=== PATIENT | male | born 1945 | race African-American/Black ===

== ENCOUNTER 2016-04-30 13:22 | Emergency (ER) | payer MEDICARE, OTHER ==
[~2016-04-30] VITALS: Ht 177.8 cm; Wt 113.4 kg
[~2016-04-30 13:22] MED LIST: CLON0.5T; NIFE30TA70; TRAZ50TA2; [UNRECOGNIZED DRUG - CODE]
[2016-04-30] MEDS ORDERED: KETOROLAC TROMETH 60MG/2ML VIAL IM ONE (16:15)
[2016-04-30 17:00] VITALS: BP 132/76
== END 2016-04-30 17:21 | disposition home or self-care (01) ==
LOC: ER 13:22
DX: M79.642 Pain in left hand (principal); I10 Essential (primary) hypertension; R51 Headache; F20.9 Schizophrenia, unspecified; W01.0XXA Fall on same level from slipping, tripping and stumbling without subsequent striking against object, initial encounter; Y93.89 Activity, other specified; Y99.8 Other external cause status; Y92.89 Other specified places as the place of occurrence of the external cause
CPT/HCPCS: 70450; 73130; 93971; 96372; 99284; J1885

== ENCOUNTER 2016-09-12 07:36 | Emergency (ER) | payer MEDICARE ==
[~2016-09-12] VITALS: Ht 177.8 cm; Wt 108.9 kg
[~2016-09-12 07:36] MED LIST changes: +AMLO5TAB2 PO
[2016-09-12 07:42] VITALS: BP 142/85
[2016-09-14] MEDS ORDERED: ATOR20TA50 PO (13:55)
[2016-09-14] MEDS ORDERED: ASPI81CH43 PO (13:55)
== END 2016-09-12 08:00 | disposition left against medical advice (07) ==
LOC: ER 07:36
DX: I10 Essential (primary) hypertension (principal); Z53.21 Procedure and treatment not carried out due to patient leaving prior to being seen by health care provider

== ENCOUNTER 2017-03-21 07:21 | Inpatient (IN) | payer OTHER, MEDICARE ==
[~2017-03-21] VITALS: Ht 182.9 cm; Wt 81.6 kg
[~2017-03-21 07:21] MED LIST changes: +ASPI81CH43 PO; +ATOR20TA50 PO
[2017-03-21 11:16] LABS: Basophils # (auto) 0 uL; Basophils % (auto) 0.6 % (0.0-2.0); Eosinophils # (auto) 0.2 uL; Eosinophils % (auto) 2.4 % (0.0-7.0); Hematocrit 46.1 % (41.0-53.0); Hemoglobin 14.3 g/dL (13.5-17.5); Lymphocytes # (auto) 1.7 uL; Lymphocytes % (auto) 24.8 % (10.0-50.0); Mean Corpuscular Hemoglobin 26.8 pg (28.0-32.0); Mean Corpuscular Volume 86.4 fL (80.0-100.0); Monocytes # (auto) 0.5 uL; Monocytes % (auto) 6.5 % (0.0-12.0); Neutrophils # (auto) 4.6 uL; Neutrophils % (auto) 65.7 % (37.0-80.0); Nucleated Red Blood Cells % 0.3 %; Platelet Count (auto) 193 10^3/uL (140-450); Red Blood Cells 5.34 10^6/uL (4.5-5.90); White Blood Cell 7.1 10^3/uL (4.4-10.8)
[2017-03-21 11:58] LABS: Alanine Aminotransferase 40 U/L (16-61); Albumin 3.3 g/dL (3.4-5.0); Alkaline Phosphatase 70 U/L (45-117); Anion Gap 9 (5-15); Aspartate Aminotransferase 20 U/L (15-37); BUN/Creatinine Ratio 15.2; Bilirubin, Total 0.6 mg/dL (0.2-1.0); Blood Urea Nitrogen 16 mg/dL (7-18); Calcium 10.2 mg/dL (8.5-10.1); Carbon Dioxide 20 mmol/L (21-32); Chloride 108 mmol/L (98-107); GFR African American 90 mL/min; GFR Non-African American 74 mL/min; Glucose 87 mg/dL (74-106); Sodium 137 mmol/L (136-145); Total Protein 7.7 g/dL (6.4-8.2)
[2017-03-21] MEDS: SODIUM CHLORIDE 0.9% 1,000 ML IV SCH (12:47)
[2017-03-21] MEDS ORDERED: amLODIPine BESYLATE 5 MG TAB PO ONE (13:00)
[2017-03-21] MEDS ORDERED: ACETAMINOPHEN 500 MG TAB PO PRN (13:00)
[2017-03-21] MEDS ORDERED: PROMETHAZINE HCL 25 MG/ML 1ML IV PRN (13:00)
[2017-03-21] MEDS ORDERED: ASPirin 81 mg TAB PO ONE (13:00)
[2017-03-21] MEDS ORDERED: LORazepam 0.5 MG TAB PO PRN (13:00)
[2017-03-21] MEDS ORDERED: MORPHINE SULF INJ 2 MG/ML SYRINGE 1ML IV PRN (13:00)
[2017-03-21] MEDS ORDERED: TEMAZEPAM 15 MG CAP PO PRN (13:00)
[2017-03-21] MEDS: HYDROcodone-ACET 5/325MG TAB PO PRN (14:41)
[2017-03-21 22:00] VITALS: BP 185/95
[2017-03-21 22:06] VITALS: BP 185/83
[2017-03-21 22:08] VITALS: BP 202/91
[2017-03-22] MEDS: ATORVASTATIN 20 MG TAB PO SCH ×2 (00:08→21:37)
[2017-03-22] MEDS: HYDROcodone-ACET 5/325MG TAB PO PRN (00:08)
[2017-03-22] MEDS ORDERED: cloNIDine HCL 0.1 MG TAB PO ONE (00:15)
[2017-03-22] MEDS ORDERED: METOPROLOL TARTRATE 25 MG TAB PO ONE (02:15)
[2017-03-22 05:19] VITALS: BP 140/95
[2017-03-22] MEDS: SODIUM CHLORIDE 0.9% 1,000 ML IV SCH ×2 (07:50→17:23)
[2017-03-22 09:00] VITALS: BP 137/91
[2017-03-22] MEDS: amLODIPine BESYLATE 5 MG TAB PO SCH (09:32)
[2017-03-22] MEDS: METOPROLOL TARTRATE 25 MG TAB PO SCH ×2 (09:33→21:37)
[2017-03-22] MEDS: ASPirin 81 mg TAB PO SCH (09:33)
[2017-03-22 13:00] VITALS: BP 135/90
[2017-03-22 17:00] VITALS: BP 134/79
[2017-03-22] MEDS ORDERED: DOCUSATE SOD 100 MG CAP PO PRN (17:30)
[2017-03-22] MEDS ORDERED: LACTULOSE 20Gm/30ML SOLN PO SCH (17:30)
[2017-03-22] MEDS ORDERED: LACTULOSE 20Gm/30ML SOLN PO PRN (18:00)
[2017-03-22 20:58] VITALS: BP 148/104
[2017-03-23] MEDS ORDERED: cloNIDine HCL 0.1 MG TAB PO PRN (00:45)
[2017-03-23] MEDS: SODIUM CHLORIDE 0.9% 1,000 ML IV SCH (07:41)
[2017-03-23 09:00] VITALS: BP 149/116
[2017-03-23] MEDS: ASPirin 81 mg TAB PO SCH (09:24)
[2017-03-23] MEDS: amLODIPine BESYLATE 5 MG TAB PO SCH (09:35)
[2017-03-23 09:36] VITALS: BP 178/100
[2017-03-23] MEDS: METOPROLOL TARTRATE 25 MG TAB PO SCH (09:37)
[2017-03-23 10:30] VITALS: BP 186/83
[2017-03-23 10:53] VITALS: BP 180/83
[2017-03-23 13:00] VITALS: BP 161/95
== END 2017-03-23 14:30 | disposition home or self-care (01) | DRG 605 ==
LOC: EDBD 07:21 → ER 07:21 → OVERFLOW 07:22 → TELE-WESTW 20:45
PROVIDERS: ADMIT Internal Medicine; ATTEND Family Medicine
DX: S70.01XA Contusion of right hip, initial encounter (principal); F20.9 Schizophrenia, unspecified; I69.354 Hemiplegia and hemiparesis following cerebral infarction affecting left non-dominant side; W18.39XA Other fall on same level, initial encounter; E78.5 Hyperlipidemia, unspecified; F43.10 Post-traumatic stress disorder, unspecified; I10 Essential (primary) hypertension; M10.9 Gout, unspecified; M19.90 Unspecified osteoarthritis, unspecified site; E21.3 Hyperparathyroidism, unspecified; F32.9 Major depressive disorder, single episode, unspecified; G47.00 Insomnia, unspecified; F41.9 Anxiety disorder, unspecified; Z74.01 Bed confinement status; Z79.899 Other long term (current) drug therapy; Y93.89 Activity, other specified; Z82.49 Family history of ischemic heart disease and other diseases of the circulatory system; Y92.098 Other place in other non-institutional residence as the place of occurrence of the external cause; I25.2 Old myocardial infarction; Y99.8 Other external cause status
CPT/HCPCS: 36415; 70450; 72192; 73502; 80053; 84484; 85025; 93005

== ENCOUNTER 2017-04-13 18:00 | Inpatient (IN) | payer MEDICARE, OTHER ==
[~2017-04-13] VITALS: Ht 177.8 cm; Wt 81.4 kg
[2017-04-13] MEDS ORDERED: SODIUM CHLORIDE 0.9% 1,000 ML IVB ONE (18:16)
[2017-04-13 20:00] LABS: Basophils # (auto) 0.1 uL; Basophils % (auto) 1.3 % (0.0-2.0); Eosinophils # (auto) 0.1 uL; Eosinophils % (auto) 1.3 % (0.0-7.0); Hematocrit 40.6 % (41.0-53.0); Hemoglobin 13.4 g/dL (13.5-17.5); Lymphocytes % (auto) 19.2 % (10.0-50.0); Mean Corpuscular Hemoglobin 27.7 pg (28.0-32.0); Mean Corpuscular Volume 84.1 fL (80.0-100.0); Monocytes # (auto) 0.7 uL; Monocytes % (auto) 7.1 % (0.0-12.0); Neutrophils # (auto) 7.3 uL; Neutrophils % (auto) 71.1 % (37.0-80.0); Nucleated Red Blood Cells % 0.6 %; Platelet Count (auto) 251 10^3/uL (140-450); Red Blood Cells 4.82 10^6/uL (4.5-5.90); Red Cell Distribution Width 18.3 % (11.8-14.3); White Blood Cell 10.2 10^3/uL (4.4-10.8)
[2017-04-13 20:13] LABS: Alanine Aminotransferase 30 U/L (16-61); Albumin 3.7 g/dL (3.4-5.0); Alkaline Phosphatase 71 U/L (45-117); Anion Gap 10 (5-15); Aspartate Aminotransferase 15 U/L (15-37); BUN/Creatinine Ratio 11.6; Bilirubin, Total 0.4 mg/dL (0.2-1.0); Blood Urea Nitrogen 22 mg/dL (7-18); Calcium 9.9 mg/dL (8.5-10.1); Carbon Dioxide 24 mmol/L (21-32); Chloride 104 mmol/L (98-107); GFR African American 45 mL/min; GFR Non-African American 37 mL/min; Glucose 104 mg/dL (74-106); Lactic Acid w/Reflex 2.8 mmol/L (0.4-2.0); Magnesium 2.1 mg/dL (1.6-2.6); Sodium 138 mmol/L (136-145); Total Protein 7.9 g/dL (6.4-8.2)
[2017-04-13 21:27] LABS: Urine Bacteria FEW /hpf (None Seen); Urine Blood 2+ /uL (Negative); Urine Hyaline Cast MOD /lpf (0 - 2); Urine Mucus FEW (None Seen); Urine Specific Gravity 1.021 (1.001-1.035); Urine WBC 9 /hpf (0 - 3)
[2017-04-13 21:39] LABS: Alcohol, Urine < 3.0 mg/dL (0-5); Amphetamine Screen, Urine NEGATIVE (NEGATIVE); Barbiturate Scree,Urine NEGATIVE (NEGATIVE); Benzodiazephine Screen, Urine NEGATIVE (NEGATIVE); Cannabinoid Screen, Urine NEGATIVE (NEGATIVE); Cocaine Screen, Urine NEGATIVE (NEGATIVE); Opiate Scree,Urine NEGATIVE (NEGATIVE); Phencyclidine Screen, Urine NEGATIVE (NEGATIVE)
[2017-04-14] MEDS: SODIUM CHLORIDE 0.9% 1,000 ML IV SCH ×3 (00:58→19:45)
[2017-04-14] MEDS ORDERED: TEMAZEPAM 15 MG CAP PO PRN (01:00)
[2017-04-14] MEDS ORDERED: MORPHINE SULFATE 4 MG/ML SYR/VIAL IV PRN (01:00)
[2017-04-14] MEDS ORDERED: HYDROcodone-ACET 5/325MG TAB PO PRN (01:00)
[2017-04-14] MEDS ORDERED: traZODone HCL 50 MG TAB PO ONE (01:00)
[2017-04-14] MEDS ORDERED: NITROGLYCERIN 0.4 MG SL TAB SL PRN (01:00)
[2017-04-14] MEDS ORDERED: ACETAMINOPHEN 325 MG TAB PO PRN (01:00)
[2017-04-14] MEDS ORDERED: ONDANSETRON HCL 4 MG/2 ML VIAL IV PRN (01:00)
[2017-04-14] MEDS ORDERED: cefTRIAXone 1GM/10ml IVPUSH 10 ML IV ONE (01:00)
[2017-04-14 08:00] VITALS: BP 120/77
[2017-04-14 08:08] VITALS: BP 125/77
[2017-04-14] MEDS: cefTRIAXone 1GM/10ml IVPUSH 10 ML IV SCH (08:37)
[2017-04-14] MEDS: FAMOTIDINE 20 MG TAB PO SCH (10:16)
[2017-04-14] MEDS: NIFEdipine ER 30 MG TAB PO SCH (10:16)
[2017-04-14] MEDS: ENOXAPARIN SOD 40 MG/0.4 ML SYRINGE SC SCH (10:17)
[2017-04-14] MEDS: amLODIPine BESYLATE 5 MG TAB PO SCH (10:17)
[2017-04-14] MEDS: clonazePAM 0.5 MG TAB PO SCH (10:18)
[2017-04-14 12:44] VITALS: BP 121/76
[2017-04-14 16:39] VITALS: BP 145/83
[2017-04-14] MEDS ORDERED: ATORVASTATIN 20 MG TAB PO SCH (22:00)
[2017-04-14] MEDS: traZODone HCL 50 MG TAB PO SCH (22:10)
[2017-04-14 22:28] VITALS: BP 153/95
[2017-04-15 05:08] VITALS: BP 136/88
[2017-04-15 06:08] LABS: Basophils # (auto) 0.1 uL; Eosinophils # (auto) 0.2 uL; Eosinophils % (auto) 3.6 % (0.0-7.0); Hematocrit 34.7 % (41.0-53.0); Hemoglobin 11.5 g/dL (13.5-17.5); Lymphocytes # (auto) 2.7 uL; Lymphocytes % (auto) 44.6 % (10.0-50.0); Mean Corpuscular Hemoglobin 27.9 pg (28.0-32.0); Mean Corpuscular Hgb Conc. 33.1 g/dL (32.0-36.0); Mean Corpuscular Volume 84.3 fL (80.0-100.0); Monocytes # (auto) 0.4 uL; Monocytes % (auto) 6.2 % (0.0-12.0); Neutrophils # (auto) 2.7 uL; Neutrophils % (auto) 44.6 % (37.0-80.0); Nucleated Red Blood Cells % 0.1 %; Platelet Count (auto) 228 10^3/uL (140-450); Red Blood Cells 4.12 10^6/uL (4.5-5.90)
[2017-04-15 06:35] LABS: Albumin 3.2 g/dL (3.4-5.0); BUN/Creatinine Ratio 17.8; Bilirubin, Total 0.7 mg/dL (0.2-1.0); Calcium 9.8 mg/dL (8.5-10.1); Total Protein 6.8 g/dL (6.4-8.2)
[2017-04-15 08:40] VITALS: BP 154/68
[2017-04-15] MEDS: cefTRIAXone 1GM/10ml IVPUSH 10 ML IV SCH (09:33)
[2017-04-15] MEDS: FAMOTIDINE 20 MG TAB PO SCH (10:00)
[2017-04-15] MEDS: ENOXAPARIN SOD 40 MG/0.4 ML SYRINGE SC SCH (11:12)
[2017-04-15] MEDS: clonazePAM 0.5 MG TAB PO SCH (11:13)
[2017-04-15] MEDS: NIFEdipine ER 30 MG TAB PO SCH (11:13)
[2017-04-15] MEDS: amLODIPine BESYLATE 5 MG TAB PO SCH (11:13)
[2017-04-15] MEDS: SODIUM CHLORIDE 0.9% 1,000 ML IV SCH ×2 (12:38→16:21)
[2017-04-15] MEDS ORDERED: ASPirin-EC 81 mg tab PO ONE (12:45)
[2017-04-15 13:00] VITALS: BP 130/74
[2017-04-15 17:00] VITALS: BP 156/95
[2017-04-15] MEDS: traZODone HCL 50 MG TAB PO SCH (21:53)
[2017-04-15 22:00] VITALS: BP 149/77
[2017-04-15] MEDS ORDERED: ATORVASTATIN 20 MG TAB PO SCH (22:00)
[2017-04-16 04:35] VITALS: BP 137/77
[2017-04-16] MEDS: SODIUM CHLORIDE 0.9% 1,000 ML IV SCH (05:48)
[2017-04-16 05:56] LABS: Basophils # (auto) 0 uL; Basophils % (auto) 0.7 % (0.0-2.0); Eosinophils # (auto) 0.2 uL; Eosinophils % (auto) 3.6 % (0.0-7.0); Hematocrit 35.8 % (41.0-53.0); Hemoglobin 11.9 g/dL (13.5-17.5); Lymphocytes # (auto) 2.4 uL; Lymphocytes % (auto) 43.5 % (10.0-50.0); Mean Corpuscular Hemoglobin 28.1 pg (28.0-32.0); Mean Corpuscular Hgb Conc. 33.2 g/dL (32.0-36.0); Mean Corpuscular Volume 84.8 fL (80.0-100.0); Monocytes # (auto) 0.4 uL; Monocytes % (auto) 7.7 % (0.0-12.0); Neutrophils # (auto) 2.5 uL; Neutrophils % (auto) 44.5 % (37.0-80.0); Nucleated Red Blood Cells % 0.1 %; Platelet Count (auto) 232 10^3/uL (140-450); Red Blood Cells 4.22 10^6/uL (4.5-5.90); Red Cell Distribution Width 17.9 % (11.8-14.3); White Blood Cell 5.5 10^3/uL (4.4-10.8)
[2017-04-16 06:13] LABS: BUN/Creatinine Ratio 18.3; Calcium 10.2 mg/dL (8.5-10.1); Potassium 3.9 mmol/L (3.5-5.1)
[2017-04-16] MEDS ORDERED: ASPirin-EC 81 mg tab PO SCH (10:00)
[2017-04-16] MEDS: cefTRIAXone 1GM/10ml IVPUSH 10 ML IV SCH (10:50)
[2017-04-16] MEDS: clonazePAM 0.5 MG TAB PO SCH (10:50)
[2017-04-16] MEDS: FAMOTIDINE 20 MG TAB PO SCH (10:51)
[2017-04-16] MEDS: amLODIPine BESYLATE 5 MG TAB PO SCH (10:51)
[2017-04-16] MEDS: ENOXAPARIN SOD 40 MG/0.4 ML SYRINGE SC SCH (10:52)
[2017-04-16] MEDS: NIFEdipine ER 30 MG TAB PO SCH (10:54)
[2017-04-16 13:00] VITALS: BP_SYST 153; BP_SYST 158; BP_DIAS 90; BP_DIAS 94
[2017-04-16 15:50] VITALS: BP 151/78
[2017-04-17] MEDS ORDERED: HALO2TAB (17:54)
== END 2017-04-16 20:45 | disposition home or self-care (01) | DRG 314 ==
LOC: EDBD 18:00 → ER 18:00 → TELE 18:01 → TELE-CENTR 04-14 02:45 → TELE-WESTW 04-15 20:30
PROVIDERS: ADMIT Nurse Practitioner; ATTEND Internal Medicine
DX: I95.9 Hypotension, unspecified (principal); N17.0 Acute kidney failure with tubular necrosis; G93.49 Other encephalopathy; I69.354 Hemiplegia and hemiparesis following cerebral infarction affecting left non-dominant side; E44.1 Mild protein-calorie malnutrition; N39.0 Urinary tract infection, site not specified; F01.50 Vascular dementia, unspecified severity, without behavioral disturbance, psychotic disturbance, mood disturbance, and anxiety; F20.9 Schizophrenia, unspecified; I13.10 Hypertensive heart and chronic kidney disease without heart failure, with stage 1 through stage 4 chronic kidney disease, or unspecified chronic kidney disease; E78.5 Hyperlipidemia, unspecified; F32.9 Major depressive disorder, single episode, unspecified; F43.10 Post-traumatic stress disorder, unspecified; I25.10 Atherosclerotic heart disease of native coronary artery without angina pectoris; G47.00 Insomnia, unspecified; F12.10 Cannabis abuse, uncomplicated; I67.9 Cerebrovascular disease, unspecified; I70.0 Atherosclerosis of aorta; N18.3 Chronic kidney disease, stage 3 (moderate); Z68.25 Body mass index [BMI] 25.0-25.9, adult; Z79.899 Other long term (current) drug therapy; Z80.0 Family history of malignant neoplasm of digestive organs; Z82.49 Family history of ischemic heart disease and other diseases of the circulatory system; Z85.038 Personal history of other malignant neoplasm of large intestine; Z79.82 Long term (current) use of aspirin; I25.2 Old myocardial infarction; Z98.61 Coronary angioplasty status; Z87.81 Personal history of (healed) traumatic fracture
CPT/HCPCS: 36415; 70450; 71045; 80048; 80053; 80307; 81001; 82962; 83605; 83735; 84484; 85025; 87040; 87081; 87086; 87088; 87186; 93005; 94761; 95819; 97116; 97163; 97530

== ENCOUNTER 2017-04-17 13:27 | Inpatient (IN) | payer MEDICARE, OTHER ==
[~2017-04-17] VITALS: Ht 180.3 cm; Wt 82.7 kg
[2017-04-17 14:31] LABS: Basophils # (auto) 0.1 uL; Basophils % (auto) 1.2 % (0.0-2.0); Eosinophils # (auto) 0.2 uL; Eosinophils % (auto) 1.7 % (0.0-7.0); Hematocrit 40.4 % (41.0-53.0); Hemoglobin 13.4 g/dL (13.5-17.5); Lymphocytes % (auto) 22.6 % (10.0-50.0); Mean Corpuscular Hemoglobin 27.7 pg (28.0-32.0); Mean Corpuscular Hgb Conc. 33.2 g/dL (32.0-36.0); Mean Corpuscular Volume 83.4 fL (80.0-100.0); Monocytes # (auto) 0.8 uL; Monocytes % (auto) 9.1 % (0.0-12.0); Neutrophils # (auto) 5.9 uL; Neutrophils % (auto) 65.4 % (37.0-80.0); Platelet Count (auto) 238 10^3/uL (140-450); Red Blood Cells 4.84 10^6/uL (4.5-5.90); Red Cell Distribution Width 17.7 % (11.8-14.3)
[2017-04-17 15:06] LABS: Alanine Aminotransferase 29 U/L (16-61); Albumin 3.5 g/dL (3.4-5.0); Alkaline Phosphatase 74 U/L (45-117); Anion Gap 10 (5-15); Aspartate Aminotransferase 13 U/L (15-37); BUN/Creatinine Ratio 10.4; Bilirubin, Total 0.4 mg/dL (0.2-1.0); Blood Urea Nitrogen 14 mg/dL (7-18); Calcium 10.2 mg/dL (8.5-10.1); Carbon Dioxide 23 mmol/L (21-32); Chloride 106 mmol/L (98-107); GFR African American 68 mL/min; GFR Non-African American 56 mL/min; Glucose 125 mg/dL (74-106); Magnesium 1.9 mg/dL (1.6-2.6); Potassium 3.8 mmol/L (3.5-5.1); Sodium 139 mmol/L (136-145); Total Protein 7.8 g/dL (6.4-8.2)
[2017-04-17] MEDS ORDERED: SODIUM CHLORIDE 0.9% 1,000 ML IV ONE (17:19)
[2017-04-17] MEDS ORDERED: cefTRIAXone 1GM/10ml IVPUSH 10 ML IV ONE (17:30)
[2017-04-17] MEDS ORDERED: HALO2TAB (17:54)
[2017-04-17 18:19] LABS: Lactic Acid w/Reflex 4.3 mmol/L (0.4-2.0)
[2017-04-17] MEDS ORDERED: NITROGLYCERIN 0.4 MG SL TAB SL PRN (19:15)
[2017-04-17] MEDS ORDERED: MORPHINE SULFATE 4 MG/ML SYR/VIAL IV PRN (19:15)
[2017-04-17] MEDS ORDERED: HALOPERIDOL 1 MG TAB PO PRN (19:15)
[2017-04-17] MEDS ORDERED: LACTULOSE 20Gm/30ML SOLN PO PRN (19:15)
[2017-04-17] MEDS ORDERED: LORazepam 2MG/ML-1ML VIAL IV PRN (19:15)
[2017-04-17] MEDS ORDERED: PROMETHAZINE HCL 25 MG/ML 1ML IV PRN (19:15)
[2017-04-17] MEDS ORDERED: LORazepam 0.5 MG TAB PO PRN (19:15)
[2017-04-17] MEDS ORDERED: ACETAMINOPHEN 500 MG TAB PO PRN (19:15)
[2017-04-17] MEDS: SODIUM CHLORIDE 0.9% 1,000 ML IV SCH (20:24)
[2017-04-17] MEDS ORDERED: cloNIDine HCL 0.1 MG TAB ONE (21:20)
[2017-04-17] MEDS ORDERED: cloNIDine HCL 0.1 MG TAB PO ONE (21:30)
[2017-04-17] MEDS ORDERED: clonazePAM 0.5 MG TAB PO SCH (22:00)
[2017-04-17] MEDS: [UNRECOGNIZED DRUG - OTHER] PO SCH (22:00)
[2017-04-17] MEDS ORDERED: ATORVASTATIN 20 MG TAB PO SCH (22:00)
[2017-04-17] MEDS ORDERED: LEVETIRACETAM 500 MG TAB PO SCH (22:00)
[2017-04-17 22:34] VITALS: BP 115/69
[2017-04-17] MEDS: traZODone HCL 50 MG TAB PO SCH (23:42)
[2017-04-18 05:15] VITALS: BP 128/71
[2017-04-18] MEDS ORDERED: ATOR1TAB PO (06:00)
[2017-04-18] MEDS ORDERED: CHOL20007 OR (06:00)
[2017-04-18] MEDS ORDERED: HALO2TAB PO (06:00)
[2017-04-18] MEDS ORDERED: METO25TA5 PO (06:02)
[2017-04-18 09:00] VITALS: BP 142/84
[2017-04-18] MEDS: amLODIPine BESYLATE 5 MG TAB PO SCH (09:53)
[2017-04-18] MEDS: ASPirin 81 mg TAB PO SCH (09:55)
[2017-04-18] MEDS: ENOXAPARIN SOD 40 MG/0.4 ML SYRINGE SC SCH (09:56)
[2017-04-18] MEDS: SODIUM CHLORIDE 0.9% 1,000 ML IV SCH ×2 (11:02→21:25)
[2017-04-18 13:00] VITALS: BP 118/67
[2017-04-18 16:43] VITALS: BP 126/66
[2017-04-18] MEDS: [UNRECOGNIZED DRUG - OTHER] PO SCH (21:25)
[2017-04-18] MEDS: ATORVASTATIN 20 MG TAB PO SCH (21:26)
[2017-04-18] MEDS: traZODone HCL 50 MG TAB PO SCH (21:26)
[2017-04-18 22:00] VITALS: BP 164/102
[2017-04-19 05:25] VITALS: BP 149/98
[2017-04-19 08:00] VITALS: BP 154/75
[2017-04-19 09:37] VITALS: BP 173/92
[2017-04-19] MEDS: ASPirin 81 mg TAB PO SCH (10:07)
[2017-04-19] MEDS: ENOXAPARIN SOD 40 MG/0.4 ML SYRINGE SC SCH (10:07)
[2017-04-19] MEDS: amLODIPine BESYLATE 5 MG TAB PO SCH (10:07)
[2017-04-19] MEDS: SODIUM CHLORIDE 0.9% 1,000 ML IV SCH (11:04)
[2017-04-19 13:00] VITALS: BP 154/75
[2017-04-19 13:00] LABS: INR 0.94 (0.9-1.15); Prothrombin Time 10.2 sec (9.37-12.3)
[2017-04-19] MEDS: LINEZOLID 600MG/300ML 300 ML IV SCH (14:33)
[2017-04-19] MEDS: HYDROcodone-ACET 5/325MG TAB PO PRN (14:35)
[2017-04-19 16:33] VITALS: BP 130/63
[2017-04-19] MEDS ORDERED: LIDOCAINE 1% HCL (LOCAL ANESTH.) INJ 20ML MDV ID ONE (19:00)
[2017-04-19] MEDS: [UNRECOGNIZED DRUG - OTHER] PO SCH (22:00)
[2017-04-19] MEDS: SODIUM CHLOR 0.9% PF (SALINE LOCK) 10ML VIAL IV SCH (22:00)
[2017-04-19] MEDS: traZODone HCL 50 MG TAB PO SCH (22:05)
[2017-04-19] MEDS: ATORVASTATIN 20 MG TAB PO SCH (22:05)
[2017-04-19 22:08] VITALS: BP 146/79
[2017-04-20] MEDS: LINEZOLID 600MG/300ML 300 ML IV SCH ×3 (00:44→23:40)
[2017-04-20] MEDS: SODIUM CHLORIDE 0.9% 1,000 ML IV SCH ×2 (00:45→14:48)
[2017-04-20] MEDS: MORPHINE SULFATE 4 MG/ML SYR/VIAL IV PRN ×4 (04:45→05:36)
[2017-04-20 05:14] VITALS: BP 143/78
[2017-04-20 09:30] VITALS: BP 139/77
[2017-04-20] MEDS: ASPirin 81 mg TAB PO SCH (12:45)
[2017-04-20] MEDS: SODIUM CHLOR 0.9% PF (SALINE LOCK) 10ML VIAL IV SCH ×2 (12:45→21:54)
[2017-04-20] MEDS: amLODIPine BESYLATE 5 MG TAB PO SCH (12:46)
[2017-04-20] MEDS: ENOXAPARIN SOD 40 MG/0.4 ML SYRINGE SC SCH (12:46)
[2017-04-20 13:00] VITALS: BP 154/93
[2017-04-20 13:03] LABS: Urine Bacteria FEW /hpf (None Seen); Urine Blood 2+ /uL (Negative); Urine Specific Gravity 1.012 (1.001-1.035); Urine WBC 47 /hpf (0 - 3)
[2017-04-20 17:56] VITALS: BP 130/69
[2017-04-20] MEDS: [UNRECOGNIZED DRUG - OTHER] PO SCH ×2 (21:54→22:00)
[2017-04-20] MEDS: ATORVASTATIN 20 MG TAB PO SCH (21:54)
[2017-04-20] MEDS: traZODone HCL 50 MG TAB PO SCH (21:54)
[2017-04-20 22:00] VITALS: BP 162/92
[2017-04-21] VITALS (13 sets, daily range): BP systolic 128–179; BP diastolic 61–98
[2017-04-21] MEDS: hydrALAZINE HCL 20 MG/ML VL IV PRN ×2 (00:27→21:20)
[2017-04-21] MEDS: MORPHINE SULFATE 4 MG/ML SYR/VIAL IV PRN ×2 (01:18→20:37)
[2017-04-21] MEDS: SODIUM CHLORIDE 0.9% 1,000 ML IV SCH ×2 (05:30→17:16)
[2017-04-21] MEDS: SODIUM CHLOR 0.9% PF (SALINE LOCK) 10ML VIAL IV SCH ×2 (10:00→22:32)
[2017-04-21] MEDS: ASPirin 81 mg TAB PO SCH (11:49)
[2017-04-21] MEDS: amLODIPine BESYLATE 5 MG TAB PO SCH (11:49)
[2017-04-21] MEDS: ENOXAPARIN SOD 40 MG/0.4 ML SYRINGE SC SCH (11:49)
[2017-04-21] MEDS: LINEZOLID 600MG/300ML 300 ML IV SCH (11:50)
[2017-04-21] MEDS: [UNRECOGNIZED DRUG - OTHER] PO SCH (22:00)
[2017-04-21] MEDS: traZODone HCL 50 MG TAB PO SCH (22:32)
[2017-04-21] MEDS: ATORVASTATIN 20 MG TAB PO SCH (22:33)
[2017-04-22] MEDS: LINEZOLID 600MG/300ML 300 ML IV SCH ×2 (00:16→19:40)
[2017-04-22] MEDS: MORPHINE SULFATE 4 MG/ML SYR/VIAL IV PRN (04:30)
[2017-04-22 05:25] VITALS: BP 131/72
[2017-04-22] MEDS: SODIUM CHLORIDE 0.9% 1,000 ML IV SCH ×2 (05:44→22:16)
[2017-04-22 08:00] VITALS: BP 126/74
[2017-04-22 13:00] VITALS: BP 121/64
[2017-04-22] MEDS: amLODIPine BESYLATE 5 MG TAB PO SCH (19:41)
[2017-04-22] MEDS: SODIUM CHLOR 0.9% PF (SALINE LOCK) 10ML VIAL IV SCH ×2 (19:41→22:16)
[2017-04-22] MEDS: ASPirin 81 mg TAB PO SCH (19:41)
[2017-04-22] MEDS: ENOXAPARIN SOD 40 MG/0.4 ML SYRINGE SC SCH (19:42)
[2017-04-22 22:00] VITALS: BP 152/80
[2017-04-22] MEDS: [UNRECOGNIZED DRUG - OTHER] PO SCH (22:00)
[2017-04-22] MEDS: traZODone HCL 50 MG TAB PO SCH (22:16)
[2017-04-22] MEDS: ATORVASTATIN 20 MG TAB PO SCH (22:16)
[2017-04-23] MEDS: LINEZOLID 600MG/300ML 300 ML IV SCH ×3 (01:01→23:33)
[2017-04-23 05:00] VITALS: BP 143/79
[2017-04-23 09:00] VITALS: BP 147/93
[2017-04-23] MEDS: ASPirin 81 mg TAB PO SCH (09:07)
[2017-04-23] MEDS: SODIUM CHLOR 0.9% PF (SALINE LOCK) 10ML VIAL IV SCH ×2 (09:07→21:27)
[2017-04-23] MEDS: ENOXAPARIN SOD 40 MG/0.4 ML SYRINGE SC SCH (09:08)
[2017-04-23] MEDS: amLODIPine BESYLATE 5 MG TAB PO SCH (09:08)
[2017-04-23] MEDS: MORPHINE SULFATE 4 MG/ML SYR/VIAL IV PRN (09:09)
[2017-04-23 12:00] VITALS: BP 165/101
[2017-04-23 17:41] VITALS: BP 152/86
[2017-04-23] MEDS: SODIUM CHLORIDE 0.9% 1,000 ML IV SCH ×2 (19:33→21:27)
[2017-04-23] MEDS: [UNRECOGNIZED DRUG - OTHER] PO SCH (21:26)
[2017-04-23] MEDS: traZODone HCL 50 MG TAB PO SCH (21:26)
[2017-04-23] MEDS: ATORVASTATIN 20 MG TAB PO SCH (21:26)
[2017-04-23 22:00] VITALS: BP 149/99
[2017-04-24 04:54] VITALS: BP 132/78
[2017-04-24 09:00] VITALS: BP 126/93
[2017-04-24] MEDS: SODIUM CHLOR 0.9% PF (SALINE LOCK) 10ML VIAL IV SCH ×2 (09:43→21:31)
[2017-04-24] MEDS: ASPirin 81 mg TAB PO SCH (09:43)
[2017-04-24] MEDS: amLODIPine BESYLATE 5 MG TAB PO SCH (09:44)
[2017-04-24] MEDS: ENOXAPARIN SOD 40 MG/0.4 ML SYRINGE SC SCH (09:44)
[2017-04-24] MEDS: HYDROcodone-ACET 5/325MG TAB PO PRN (09:47)
[2017-04-24] MEDS: SODIUM CHLORIDE 0.9% 1,000 ML IV SCH ×2 (12:17→23:34)
[2017-04-24] MEDS: LINEZOLID 600MG/300ML 300 ML IV SCH ×2 (12:25→23:34)
[2017-04-24 13:15] VITALS: BP 150/79
[2017-04-24 13:25] LABS: Urine Bacteria NONE SEEN /hpf (None Seen); Urine Blood Negative /uL (Negative); Urine Mucus FEW (None Seen); Urine Specific Gravity 1.007 (1.001-1.035); Urine WBC 1 /hpf (0 - 3)
[2017-04-24 17:00] VITALS: BP 146/62
[2017-04-24] MEDS: [UNRECOGNIZED DRUG - OTHER] PO SCH (21:31)
[2017-04-24] MEDS: ATORVASTATIN 20 MG TAB PO SCH (21:32)
[2017-04-24] MEDS: traZODone HCL 50 MG TAB PO SCH (21:32)
[2017-04-24 22:00] VITALS: BP 144/77
[2017-04-25 05:00] VITALS: BP 132/81
[2017-04-25 08:00] VITALS: BP 172/91
[2017-04-25] MEDS: SODIUM CHLOR 0.9% PF (SALINE LOCK) 10ML VIAL IV SCH (08:53)
[2017-04-25] MEDS: ENOXAPARIN SOD 40 MG/0.4 ML SYRINGE SC SCH (08:53)
[2017-04-25] MEDS: ASPirin 81 mg TAB PO SCH (08:53)
[2017-04-25] MEDS: amLODIPine BESYLATE 5 MG TAB PO SCH (08:54)
[2017-04-25 12:00] VITALS: BP 120/79
== END 2017-04-25 17:34 | disposition home or self-care (01) | DRG 871 ==
LOC: EDBD 13:27 → ER 13:27 → TELE 13:28 → TELE-CENTR 22:34 → CENTRAL 04-20 14:42 → TELE-CENTR 04-21 00:54
PROVIDERS: ADMIT Internal Medicine; ATTEND Family Medicine
PROC: 02HV33Z Insertion of Infusion Device into Superior Vena Cava, Percutaneous Approach (ICD-10-PCS; principal; 2017-04-19)
DX: A41.9 Sepsis, unspecified organism (principal); G93.41 Metabolic encephalopathy; I69.354 Hemiplegia and hemiparesis following cerebral infarction affecting left non-dominant side; F20.9 Schizophrenia, unspecified; R56.9 Unspecified convulsions; N39.0 Urinary tract infection, site not specified; F03.90 Unspecified dementia, unspecified severity, without behavioral disturbance, psychotic disturbance, mood disturbance, and anxiety; F43.10 Post-traumatic stress disorder, unspecified; F31.9 Bipolar disorder, unspecified; E78.5 Hyperlipidemia, unspecified; I10 Essential (primary) hypertension; I25.10 Atherosclerotic heart disease of native coronary artery without angina pectoris; Z16.21 Resistance to vancomycin; B95.2 Enterococcus as the cause of diseases classified elsewhere; M10.9 Gout, unspecified; M19.90 Unspecified osteoarthritis, unspecified site; K59.00 Constipation, unspecified; I25.2 Old myocardial infarction; Z98.61 Coronary angioplasty status; Z79.82 Long term (current) use of aspirin; Z79.899 Other long term (current) drug therapy; Z82.49 Family history of ischemic heart disease and other diseases of the circulatory system; Z71.3 Dietary counseling and surveillance
CPT/HCPCS: 36415; 36569; 70450; 71045; 80053; 81001; 83605; 83735; 84484; 85025; 85610; 85652; 87040; 87081; 87086; 93005; 95819; 96361; 96374

== ENCOUNTER 2017-04-26 00:56 | Inpatient (IN) | payer OTHER, MEDICARE ==
[~2017-04-26] VITALS: Ht 180.3 cm; Wt 71.8 kg
[~2017-04-26 00:56] MED LIST changes: +ATOR1TAB PO; -ATOR20TA50 PO; +CHOL20007 OR; +HALO2TAB PO; +METO25TA5 PO
[2017-04-26 02:23] LABS: Basophils # (auto) 0 uL; Basophils % (auto) 0.5 % (0.0-2.0); Eosinophils # (auto) 0 uL; Eosinophils % (auto) 0.2 % (0.0-7.0); Hematocrit 35.8 % (41.0-53.0); Hemoglobin 11.9 g/dL (13.5-17.5); Lymphocytes # (auto) 1.6 uL; Mean Corpuscular Hemoglobin 28.3 pg (28.0-32.0); Mean Corpuscular Hgb Conc. 33.3 g/dL (32.0-36.0); Mean Corpuscular Volume 84.9 fL (80.0-100.0); Monocytes # (auto) 0.8 uL; Monocytes % (auto) 7.8 % (0.0-12.0); Neutrophils # (auto) 7.6 uL; Neutrophils % (auto) 75.5 % (37.0-80.0); Platelet Count (auto) 273 10^3/uL (140-450); Red Blood Cells 4.21 10^6/uL (4.5-5.90); Red Cell Distribution Width 16.7 % (11.8-14.3); White Blood Cell 10.1 10^3/uL (4.4-10.8)
[2017-04-26 02:36] LABS: INR 0.98 (0.9-1.15); Partial Thromboplastin Time 31.1 sec (22.64-33.71); Prothrombin Time 10.7 sec (9.37-12.3)
[2017-04-26 02:45] LABS: Alanine Aminotransferase 113 U/L (16-61); Albumin 3.1 g/dL (3.4-5.0); Anion Gap 11 (5-15); Aspartate Aminotransferase 50 U/L (15-37); BUN/Creatinine Ratio 16.7; Blood Urea Nitrogen 16 mg/dL (7-18); Calcium 10.1 mg/dL (8.5-10.1); Carbon Dioxide 21 mmol/L (21-32); Chloride 101 mmol/L (98-107); GFR African American 100 mL/min; GFR Non-African American 82 mL/min; Glucose 122 mg/dL (74-106); Potassium 3.8 mmol/L (3.5-5.1); Sodium 133 mmol/L (136-145)
[2017-04-26 02:52] LABS: Alkaline Phosphatase 67 U/L (45-117); Bilirubin, Total 0.4 mg/dL (0.2-1.0); Total Protein 7.8 g/dL (6.4-8.2)
[2017-04-26 04:41] LABS: Urine WBC None Seen /hpf (0 - 3)
[2017-04-26] MEDS ORDERED: cloNIDine HCL 0.1 MG TAB PO ONE (04:45)
[2017-04-26 05:04] LABS: Urine Bacteria NONE SEEN /hpf (None Seen); Urine Blood Negative /uL (Negative); Urine Specific Gravity 1.015 (1.001-1.035)
[2017-04-26] MEDS ORDERED: NITROGLYCERIN 0.4 MG SL TAB SL PRN (05:45)
[2017-04-26] MEDS ORDERED: ACETAMINOPHEN 325 MG TAB PO PRN (05:45)
[2017-04-26] MEDS ORDERED: DOCUSATE SOD 100 MG CAP PO PRN (05:45)
[2017-04-26] MEDS ORDERED: ONDANSETRON HCL 4 MG/2 ML VIAL IV PRN (05:45)
[2017-04-26] MEDS ORDERED: hydrALAZINE HCL 20 MG/ML VL IV ONE (05:45)
[2017-04-26] MEDS ORDERED: MORPHINE SULFATE 4 MG/ML SYR/VIAL IV PRN (05:45)
[2017-04-26] MEDS ORDERED: TEMAZEPAM 15 MG CAP PO PRN (05:45)
[2017-04-26] MEDS ORDERED: ALBUTEROL SULF 2.5 MG/0.5ML(0.5%) NEB SOLN NEB PRN (05:45)
[2017-04-26] MEDS ORDERED: IPRATROPIUM BROM 0.5 MG/2.5ML INH SOL NEB PRN (05:45)
[2017-04-26] MEDS ORDERED: cefTRIAXone 1GM/10ml IVPUSH 10 ML IV ONE (06:45)
[2017-04-26 07:22] VITALS: BP 165/91
[2017-04-26 08:10] VITALS: BP 136/77
[2017-04-26] MEDS: METOPROLOL SUCCINATE XL 50 MG TAB PO SCH (10:53)
[2017-04-26] MEDS: amLODIPine BESYLATE 5 MG TAB PO SCH (10:54)
[2017-04-26] MEDS: NIFEdipine ER 30 MG TAB PO SCH (10:56)
[2017-04-26] MEDS: FAMOTIDINE 20 MG TAB PO SCH ×2 (10:58→21:44)
[2017-04-26] MEDS: ENOXAPARIN SOD 40 MG/0.4 ML SYRINGE SC SCH (10:59)
[2017-04-26 13:00] VITALS: BP 144/78
[2017-04-26] MEDS ORDERED: SODIUM CHLORIDE 0.9% 1,000 ML IV ONE (13:15)
[2017-04-26] MEDS: ALBUTEROL SULF 2.5 MG/0.5ML(0.5%) NEB SOLN NEB SCH ×3 (13:25→18:55)
[2017-04-26] MEDS: IPRATROPIUM BROM 0.5 MG/2.5ML INH SOL NEB SCH ×2 (13:25→18:54)
[2017-04-26] MEDS: DOXYCYCLINE 100 MG TAB/CAP PO SCH ×2 (14:33→21:44)
[2017-04-26 17:00] VITALS: BP 134/75
[2017-04-26 21:30] VITALS: BP 164/84
[2017-04-26] MEDS: ATORVASTATIN 20 MG TAB PO SCH (21:44)
[2017-04-26 21:52] VITALS: BP 156/78
[2017-04-27] MEDS: IPRATROPIUM BROM 0.5 MG/2.5ML INH SOL NEB SCH ×4 (00:32→19:10)
[2017-04-27] MEDS: HYDROcodone-ACET 5/325MG TAB PO PRN ×2 (01:42→22:47)
[2017-04-27] MEDS: ALBUTEROL SULF 2.5 MG/0.5ML(0.5%) NEB SOLN NEB SCH ×2 (02:00→19:19)
[2017-04-27] MEDS: clonazePAM 0.5 MG TAB PO PRN (02:29)
[2017-04-27 05:41] VITALS: BP 147/80
[2017-04-27 07:24] LABS: Potassium 3.8 mmol/L (3.5-5.1)
[2017-04-27 07:29] LABS: BUN/Creatinine Ratio 20.5
[2017-04-27 07:45] LABS: Basophils # (auto) 0.1 uL; Basophils % (auto) 0.6 % (0.0-2.0); Eosinophils # (auto) 0.1 uL; Eosinophils % (auto) 1.1 % (0.0-7.0); Hematocrit 33.9 % (41.0-53.0); Hemoglobin 11.5 g/dL (13.5-17.5); Lymphocytes % (auto) 19.6 % (10.0-50.0); Mean Corpuscular Hemoglobin 28.1 pg (28.0-32.0); Mean Corpuscular Hgb Conc. 33.9 g/dL (32.0-36.0); Mean Corpuscular Volume 82.9 fL (80.0-100.0); Monocytes % (auto) 9.4 % (0.0-12.0); Neutrophils # (auto) 7.2 uL; Neutrophils % (auto) 69.3 % (37.0-80.0); Nucleated Red Blood Cells % 0.1 %; Platelet Count (auto) 296 10^3/uL (140-450); Red Blood Cells 4.09 10^6/uL (4.5-5.90); Red Cell Distribution Width 16.3 % (11.8-14.3); White Blood Cell 10.3 10^3/uL (4.4-10.8)
[2017-04-27 08:28] VITALS: BP 150/95
[2017-04-27] MEDS ORDERED: cefTRIAXone 1GM/10ml IVPUSH 10 ML IV SCH (09:00)
[2017-04-27] MEDS: predniSONE 20 MG TAB PO SCH (10:33)
[2017-04-27] MEDS: amLODIPine BESYLATE 5 MG TAB PO SCH (10:33)
[2017-04-27] MEDS: DOXYCYCLINE 100 MG TAB/CAP PO SCH ×3 (10:34→22:46)
[2017-04-27] MEDS: NIFEdipine ER 30 MG TAB PO SCH (10:34)
[2017-04-27] MEDS: METOPROLOL SUCCINATE XL 50 MG TAB PO SCH (10:34)
[2017-04-27] MEDS: FAMOTIDINE 20 MG TAB PO SCH ×3 (10:34→22:46)
[2017-04-27] MEDS: ENOXAPARIN SOD 40 MG/0.4 ML SYRINGE SC SCH (10:35)
[2017-04-27 13:00] VITALS: BP 140/77
[2017-04-27 17:00] VITALS: BP 127/76
[2017-04-27 21:30] VITALS: BP 154/80
[2017-04-27] MEDS: ATORVASTATIN 20 MG TAB PO SCH ×2 (22:00→22:48)
[2017-04-28] MEDS: IPRATROPIUM BROM 0.5 MG/2.5ML INH SOL NEB SCH ×4 (01:01→19:19)
[2017-04-28 05:00] VITALS: BP 147/71
[2017-04-28 06:44] LABS: Basophils # (auto) 0.1 uL; Basophils % (auto) 0.4 % (0.0-2.0); Eosinophils # (auto) 0.1 uL; Eosinophils % (auto) 0.5 % (0.0-7.0); Hematocrit 34.5 % (41.0-53.0); Hemoglobin 11.4 g/dL (13.5-17.5); Lymphocytes # (auto) 2.5 uL; Lymphocytes % (auto) 21.2 % (10.0-50.0); Mean Corpuscular Hemoglobin 27.7 pg (28.0-32.0); Mean Corpuscular Volume 83.9 fL (80.0-100.0); Monocytes # (auto) 1.1 uL; Monocytes % (auto) 9.2 % (0.0-12.0); Neutrophils # (auto) 8.1 uL; Neutrophils % (auto) 68.7 % (37.0-80.0); Nucleated Red Blood Cells % 0.1 %; Platelet Count (auto) 333 10^3/uL (140-450); Red Blood Cells 4.11 10^6/uL (4.5-5.90); Red Cell Distribution Width 16.3 % (11.8-14.3); White Blood Cell 11.8 10^3/uL (4.4-10.8)
[2017-04-28 06:57] LABS: Calcium 10.4 mg/dL (8.5-10.1); Potassium 3.6 mmol/L (3.5-5.1)
[2017-04-28 06:59] LABS: BUN/Creatinine Ratio 23.2
[2017-04-28] MEDS: ALBUTEROL SULF 2.5 MG/0.5ML(0.5%) NEB SOLN NEB SCH ×3 (07:36→13:25)
[2017-04-28 09:00] VITALS: BP 153/80
[2017-04-28] MEDS: predniSONE 20 MG TAB PO SCH (11:07)
[2017-04-28] MEDS: FAMOTIDINE 20 MG TAB PO SCH ×2 (11:07→23:08)
[2017-04-28] MEDS: amLODIPine BESYLATE 5 MG TAB PO SCH (11:07)
[2017-04-28] MEDS: DOXYCYCLINE 100 MG TAB/CAP PO SCH ×2 (11:08→23:07)
[2017-04-28] MEDS: ENOXAPARIN SOD 40 MG/0.4 ML SYRINGE SC SCH (11:08)
[2017-04-28] MEDS: METOPROLOL SUCCINATE XL 50 MG TAB PO SCH (11:08)
[2017-04-28] MEDS: NIFEdipine ER 30 MG TAB PO SCH (11:08)
[2017-04-28] MEDS ORDERED: ALB5IS NEB (12:43)
[2017-04-28] MEDS ORDERED: METO50TA7 PO (12:43)
[2017-04-28] MEDS ORDERED: DOX100T PO (12:43)
[2017-04-28 13:00] VITALS: BP 140/74
[2017-04-28] MEDS: clonazePAM 0.5 MG TAB PO PRN (16:10)
[2017-04-28] MEDS: HYDROcodone-ACET 5/325MG TAB PO PRN (16:11)
[2017-04-28 17:15] VITALS: BP 135/77
[2017-04-28 22:00] VITALS: BP 142/79
[2017-04-28] MEDS: ATORVASTATIN 20 MG TAB PO SCH (23:08)
[2017-04-29] MEDS: IPRATROPIUM BROM 0.5 MG/2.5ML INH SOL NEB SCH ×4 (00:44→19:30)
[2017-04-29 05:00] VITALS: BP 155/81
[2017-04-29 08:13] LABS: Basophils # (auto) 0 uL; Basophils % (auto) 0.5 % (0.0-2.0); Eosinophils # (auto) 0 uL; Eosinophils % (auto) 0.3 % (0.0-7.0); Hemoglobin 11.8 g/dL (13.5-17.5); Lymphocytes # (auto) 2.8 uL; Lymphocytes % (auto) 26.5 % (10.0-50.0); Mean Corpuscular Hemoglobin 28.4 pg (28.0-32.0); Mean Corpuscular Hgb Conc. 33.8 g/dL (32.0-36.0); Mean Corpuscular Volume 83.9 fL (80.0-100.0); Monocytes # (auto) 0.9 uL; Monocytes % (auto) 8.7 % (0.0-12.0); Neutrophils # (auto) 6.8 uL; Platelet Count (auto) 377 10^3/uL (140-450); Red Blood Cells 4.17 10^6/uL (4.5-5.90); Red Cell Distribution Width 16.5 % (11.8-14.3); White Blood Cell 10.6 10^3/uL (4.4-10.8)
[2017-04-29 08:39] LABS: BUN/Creatinine Ratio 28.4; Calcium 10.8 mg/dL (8.5-10.1); Potassium 3.9 mmol/L (3.5-5.1)
[2017-04-29 09:00] VITALS: BP 136/88
[2017-04-29] MEDS: NIFEdipine ER 30 MG TAB PO SCH (10:18)
[2017-04-29] MEDS: ENOXAPARIN SOD 40 MG/0.4 ML SYRINGE SC SCH (10:18)
[2017-04-29] MEDS: DOXYCYCLINE 100 MG TAB/CAP PO SCH ×2 (10:19→21:50)
[2017-04-29] MEDS: METOPROLOL SUCCINATE XL 50 MG TAB PO SCH (10:19)
[2017-04-29] MEDS: FAMOTIDINE 20 MG TAB PO SCH ×2 (10:20→21:50)
[2017-04-29] MEDS: predniSONE 20 MG TAB PO SCH (10:20)
[2017-04-29] MEDS: amLODIPine BESYLATE 5 MG TAB PO SCH (10:21)
[2017-04-29 13:00] VITALS: BP 157/87
[2017-04-29 17:00] VITALS: BP 144/79
[2017-04-29 20:07] VITALS: BP 144/79
[2017-04-29] MEDS: ATORVASTATIN 20 MG TAB PO SCH (21:50)
[2017-04-29 22:00] VITALS: BP 150/93
[2017-04-30] MEDS: IPRATROPIUM BROM 0.5 MG/2.5ML INH SOL NEB SCH ×3 (00:16→12:14)
[2017-04-30 06:00] VITALS: BP 148/95
[2017-04-30 07:13] LABS: Basophils # (auto) 0 uL; Basophils % (auto) 0.5 % (0.0-2.0); Eosinophils # (auto) 0.1 uL; Eosinophils % (auto) 0.5 % (0.0-7.0); Hematocrit 34.9 % (41.0-53.0); Hemoglobin 11.6 g/dL (13.5-17.5); Lymphocytes # (auto) 2.7 uL; Mean Corpuscular Hgb Conc. 33.3 g/dL (32.0-36.0); Mean Corpuscular Volume 84.1 fL (80.0-100.0); Monocytes # (auto) 0.8 uL; Monocytes % (auto) 7.9 % (0.0-12.0); Neutrophils # (auto) 6.4 uL; Neutrophils % (auto) 64.1 % (37.0-80.0); Nucleated Red Blood Cells % 0.1 %; Platelet Count (auto) 415 10^3/uL (140-450); Red Blood Cells 4.15 10^6/uL (4.5-5.90); Red Cell Distribution Width 16.7 % (11.8-14.3)
[2017-04-30 07:21] LABS: Calcium 10.9 mg/dL (8.5-10.1); Potassium 3.8 mmol/L (3.5-5.1)
[2017-04-30 07:55] LABS: BUN/Creatinine Ratio 26.5
[2017-04-30 08:00] VITALS: BP 155/97
[2017-04-30 09:00] VITALS: BP 155/92
[2017-04-30] MEDS: predniSONE 20 MG TAB PO SCH (10:00)
[2017-04-30] MEDS: METOPROLOL SUCCINATE XL 50 MG TAB PO SCH (10:00)
[2017-04-30] MEDS: DOXYCYCLINE 100 MG TAB/CAP PO SCH (10:00)
[2017-04-30] MEDS: amLODIPine BESYLATE 5 MG TAB PO SCH (10:00)
[2017-04-30] MEDS: FAMOTIDINE 20 MG TAB PO SCH (10:00)
[2017-04-30] MEDS: NIFEdipine ER 30 MG TAB PO SCH (10:00)
[2017-04-30] MEDS: ENOXAPARIN SOD 40 MG/0.4 ML SYRINGE SC SCH (10:59)
[2017-04-30 13:00] VITALS: BP 147/99
[2017-04-30 14:51] VITALS: BP 155/97
== END 2017-04-30 17:54 | DRG 291 ==
LOC: EDBD 00:56 → ER 00:56 → TELE 00:57 → TELE-WESTW 08:39
PROVIDERS: ADMIT Nurse Practitioner; ATTEND Internal Medicine
DX: I11.0 Hypertensive heart disease with heart failure (principal); J96.20 Acute and chronic respiratory failure, unspecified whether with hypoxia or hypercapnia; J44.0 Chronic obstructive pulmonary disease with (acute) lower respiratory infection; J44.1 Chronic obstructive pulmonary disease with (acute) exacerbation; I50.9 Heart failure, unspecified; F20.9 Schizophrenia, unspecified; J20.9 Acute bronchitis, unspecified; F12.90 Cannabis use, unspecified, uncomplicated; K59.00 Constipation, unspecified; G47.00 Insomnia, unspecified; I25.10 Atherosclerotic heart disease of native coronary artery without angina pectoris; M10.9 Gout, unspecified; F41.9 Anxiety disorder, unspecified; F31.9 Bipolar disorder, unspecified; Z87.891 Personal history of nicotine dependence; Z79.899 Other long term (current) drug therapy; Z86.73 Personal history of transient ischemic attack (TIA), and cerebral infarction without residual deficits
CPT/HCPCS: 36415; 71045; 80048; 80053; 81001; 83880; 84484; 85025; 85610; 85730; 92610; 93005; 94640; 96374; 96375; 97116; 97163; 97530

== ENCOUNTER 2019-12-29 09:50 | Inpatient (IN) | payer MEDICARE, OTHER ==
[~2019-12-29] VITALS: Ht 177.8 cm; Wt 98.0 kg
[~2019-12-29 09:50] MED LIST changes: +ALB5IS NEB; +AMLO5TAB15 PO; -AMLO5TAB2 PO; +DOX100T PO; +METO-6 PO; -METO25TA5 PO; -NIFE30TA70
[2019-12-29] MEDS ORDERED: cloNIDine HCL 0.1 MG TAB PO ONE (10:30)
[2019-12-29 11:06] LABS: Basophils # (auto) 0.1 10 ^3/uL (0-0.2); Basophils % (auto) 1.3 % (0.0-2.0); Eosinophils # (auto) 0.4 10 ^3/uL (0-0.8); Eosinophils % (auto) 5.3 % (0.0-7.0); Hematocrit 46.7 % (41.0-53.0); Hemoglobin 15.6 g/dL (13.5-17.5); Lymphocytes # (auto) 2.4 10 ^3/uL (0.4-5.4); Lymphocytes % (auto) 29.8 % (10.0-50.0); Mean Corpuscular Hemoglobin 29.8 pg (28.0-32.0); Mean Corpuscular Hgb Conc. 33.4 g/dL (32.0-36.0); Mean Corpuscular Volume 89.2 fL (80.0-100.0); Monocytes # (auto) 0.5 10 ^3/uL (0-1.3); Monocytes % (auto) 6.9 % (0.0-12.0); Neutrophils # (auto) 4.5 10 ^3/uL (1.6-8.6); Neutrophils % (auto) 56.7 % (37.0-80.0); Nucleated Red Blood Cells % 0.1 %; Platelet Count (auto) 237 10^3/uL (140-450); Red Blood Cells 5.24 10^6/uL (4.5-5.90); Red Cell Distribution Width 16.4 % (11.8-14.3); White Blood Cell 7.9 10^3/uL (4.4-10.8)
[2019-12-29 11:27] LABS: Anion Gap 6 (5-15); Blood Urea Nitrogen 18 mg/dL (7-18); Calcium 9.6 mg/dL (8.5-10.1); Carbon Dioxide 22 mmol/L (21-32); Chloride 109 mmol/L (98-107); Glucose 97 mg/dL (74-106); Magnesium 2.3 mg/dL (1.6-2.6); Potassium 3.7 mmol/L (3.5-5.1); Sodium 137 mmol/L (136-145)
[2019-12-29 11:34] LABS: Alanine Aminotransferase 36 U/L (16-61); Alkaline Phosphatase 98 U/L (45-117); Aspartate Aminotransferase 23 U/L (15-37); BUN/Creatinine Ratio 12.9; Bilirubin, Total 0.5 mg/dL (0.2-1.0); GFR African American 64 mL/min; GFR Non-African American 53 mL/min; Total Protein 8.4 g/dL (6.4-8.2)
[2019-12-29] MEDS ORDERED: NITROGLYCERIN 0.4 MG SL TAB SL PRN ×2 (14:00→14:45)
[2019-12-29] MEDS ORDERED: MORPHINE SULF INJ 2 MG/ML SYRINGE 1ML IV PRN ×3 (14:00→14:45)
[2019-12-29] MEDS ORDERED: LABETALOL HCL 5 MG/ML 4ML SYRINGE IV ONE (14:00)
[2019-12-29] MEDS ORDERED: LORA-655 PO (14:29)
[2019-12-29] MEDS ORDERED: PSYL100P8 PO (14:29)
[2019-12-29] MEDS ORDERED: MELA5TAB8 PO (14:29)
[2019-12-29] MEDS ORDERED: CHOL500023 PO (14:29)
[2019-12-29] MEDS ORDERED: AMLO10TA13 PO (14:31)
[2019-12-29] MEDS ORDERED: ATEN-60 PO (14:32)
[2019-12-29] MEDS ORDERED: FAMO-12 PO (14:32)
[2019-12-29] MEDS ORDERED: CYAN100056 PO (14:32)
[2019-12-29] MEDS ORDERED: ACET-6 PO (14:33)
[2019-12-29] MEDS ORDERED: NIFEdipine ER 30 MG TAB PO ONE (14:45)
[2019-12-29] MEDS ORDERED: ALUM & MAG HYDROX-SIMETH LIQ(MAALOX) 30 ML PO PRN (14:45)
[2019-12-29] MEDS ORDERED: HYDROcodone-ACET 5/325MG TAB PO PRN (14:45)
[2019-12-29] MEDS ORDERED: ONDANSETRON HCL 4 MG/2 ML VIAL IV PRN (14:45)
[2019-12-29] MEDS ORDERED: LORazepam 0.5 MG TAB PO PRN (14:45)
[2019-12-29] MEDS ORDERED: ACETAMINOPHEN 325 MG TAB PO PRN (14:45)
[2019-12-29] MEDS ORDERED: DOCUSATE SOD 100 MG CAP PO PRN (14:45)
[2019-12-29] MEDS: ENOXAPARIN SOD 40 MG/0.4 ML SYRINGE SC SCH (15:36)
[2019-12-29] MEDS ORDERED: SODIUM CHLORIDE 0.9% 1,000 ML IV ONE (17:30)
[2019-12-29 21:22] LABS: Cholesterol 177 mg/dL (< 200); HDL Cholesterol 39 mg/dL (40-59); LDL Cholesterol 112 mg/dL (< 100); Triglycerides 117 mg/dL (< 150)
[2019-12-29 21:30] VITALS: BP 184/95
--- NOTE | 2019-12-29 21:30 | NUR ---
Patient arrived to room 276B Patient A&Ox3, with forgetfullness, respirations even and non-labored with no s/s of distress or c/o pain at this time. Patient VS: T97.9, ND 67, BP184/95, RR 18, 99%. Patient given urinal bedside and advised to call for assistance. Bed alarm in place. Discussed patient's condition and why he was here, patient appeared to understand and verbalized understanding. Oriented the patient to the room, bed, call light. Bed in lowest locked position with 3 side rails up, bed alarm set. Call light placed within the patients hands. Will continue to monitor Q1hr and PRN.
[2019-12-29 21:40] VITALS: BP 184/93
--- NOTE | 2019-12-29 23:15 | NUR ---
Spoke with patients daughter Mayra Discussed patients current condition/BP. Answered daughters questions and addressed her concerns. Daughter stated that her father was incontinent and that she had him toilet Q2hrs at home. Her father is unable to use a urinal as well. Currently her father has no teeth as his dentures are currently being made at this time.
[2019-12-29] MEDS: ATORVASTATIN 20 MG TAB PO SCH (23:23)
[2019-12-29] MEDS: hydrALAZINE HCL 25 MG TAB PO PRN (23:23)
[2019-12-29] MEDS: FAMOTIDINE 20 MG TAB PO SCH (23:23)
[2019-12-30 05:00] VITALS: BP 152/81
--- NOTE | 2019-12-30 05:47 | NUR ---
Patient incontinent of stool and urine. Gown/linen changed, patient bathed. Skin is without s/s of irritation or redness at this time. Patient tolerated well.
--- NOTE | 2019-12-30 07:15 | NUR ---
Opening Shift Note Assumed care of patient, awake and alert. No S/S of distress/SOB or pain. Instructed on POC and to call for assistance PRN bed is locked and in lowest position bed rails up x2 , call light within reach, will continue to monitor for changes Q1hr and PRN.
--- NOTE | 2019-12-30 07:25 | NUR ---
Closing shift note Patient resting without s/s of distress at this time. Endorsed care to day shift RNGiovanna.
[2019-12-30 09:00] VITALS: BP 144/81
[2019-12-30] MEDS: CHOLECALCIFEROL (VITD3) 2,000 UNIT CAP PO SCH (10:00)
[2019-12-30] MEDS: ASPirin 81 mg TAB PO SCH (10:49)
[2019-12-30] MEDS: FAMOTIDINE 20 MG TAB PO SCH ×2 (10:49→22:38)
[2019-12-30] MEDS: NIFEdipine ER 30 MG TAB PO SCH (10:50)
[2019-12-30] MEDS: CYANOCOBALAMIN 500 MCG TAB PO SCH (10:51)
[2019-12-30] MEDS: ENOXAPARIN SOD 40 MG/0.4 ML SYRINGE SC SCH (10:51)
[2019-12-30 12:47] LABS: Calcium 10.3 mg/dL (8.5-10.1); Potassium 3.8 mmol/L (3.5-5.1)
[2019-12-30 13:00] VITALS: BP 137/87
[2019-12-30 16:33] VITALS: BP 161/85
[2019-12-30 20:00] VITALS: BP 144/81
[2019-12-30] MEDS ORDERED: LORazepam 2MG/ML-1ML VIAL IV PRN (21:30)
--- NOTE | 2019-12-30 21:51 | NUR ---
SPOKE WITH PATIENT'S DAUGHTER RYAN;GAVE UPDATE ON PT'S CONDITION.
[2019-12-30 22:00] VITALS: BP 141/76
[2019-12-30] MEDS: ATORVASTATIN 20 MG TAB PO SCH (22:38)
[2019-12-31 05:00] VITALS: BP 173/103
[2019-12-31] MEDS: hydrALAZINE HCL 25 MG TAB PO PRN (05:05)
--- NOTE | 2019-12-31 06:01 | NUR ---
HOSPITALIST PAGED BECAUSE PT'S B/P IS 157/97 AND APRESOLINE WAS GIVEN ONE HOUR AGO TO DECREASE IT.
--- NOTE | 2019-12-31 06:34 | NUR ---
ORDER RECEIVED FROM [facility];10 MG CARDIZEM IV.
[2019-12-31] MEDS ORDERED: dilTIAZem 25 MG/5 ML VIAL IV ONE ×2 (06:45)
--- NOTE | 2019-12-31 06:55 | NUR ---
ORDER IN COMPUTER BUT NOT RELEASED IN [facility].SPOKE WITH LTARICE IN PHARMACY WHO STATES IT WILL BE A FEW MINUTES BEFORE ORDER CAN BE RELEASED INTO [facility]. BLOOD PRESSURE RECHECK 159//97.
--- NOTE | 2019-12-31 07:08 | NUR ---
CARDIZEM GIVEN;PT AT BEDSIDE.
[2019-12-31 09:00] VITALS: BP 150/85
--- NOTE | 2019-12-31 09:34 | NUR ---
DR STOKES IN TO SEE PT.
[2019-12-31] MEDS ORDERED: cloNIDine HCL 0.1 MG TAB PO PRN (09:45)
[2019-12-31] MEDS: CHOLECALCIFEROL (VITD3) 2,000 UNIT CAP PO SCH (10:00)
[2019-12-31] MEDS: NIFEdipine ER 30 MG TAB PO SCH (10:34)
[2019-12-31] MEDS: CYANOCOBALAMIN 500 MCG TAB PO SCH (10:35)
[2019-12-31] MEDS: ASPirin 81 mg TAB PO SCH (10:35)
[2019-12-31] MEDS: FAMOTIDINE 20 MG TAB PO SCH ×2 (10:35→22:03)
[2019-12-31] MEDS: LISINOPRIL 20 MG TAB PO SCH (10:36)
[2019-12-31] MEDS: ENOXAPARIN SOD 40 MG/0.4 ML SYRINGE SC SCH (10:36)
[2019-12-31 11:28] LABS: Folate (Folic Acid) 13.48 ng/mL (5.38-24)
[2019-12-31 13:00] VITALS: BP 136/91
--- NOTE | 2019-12-31 14:48 | NUR ---
EEG COMPLETED AT BEDSIDE. PRIMARY RN MARCELINO MONTANEZ.
--- NOTE | 2019-12-31 15:07 | NUR ---
The patient is a 74-year-old male, who is alert and oriented. Patient cognitive abilities are intact, patient use a walker for ambulatory assistance. Patient stated that he lives with his daughter Mayra and his son Martín small parts shaper operator between the two of his children. Patient stated that he is receiving home health physical therapy. Patient stated that physical therapy come to his daughter house and son house. Patient plan to return home to his children house post discharge. Discharge planning for patient to return home post discharge either to his daughter house or son, patient currently lives with both children. Patient will need a resumption order for home health physical therapy. Patient has no discharge needs. Addendum: 12/31/19 at 1508 by KATHY CARLOS Amended: Links added.
[2019-12-31 17:00] VITALS: BP 148/77
--- NOTE | 2019-12-31 19:45 | NUR ---
Dr Rice placed order for Valerio Catheter after hearing patient complain of full bladder. However, patient voided large amount into pad after encouragement by me. Bladder scan post void was 45cc. Therefore, cancelled insertion of valerio. Pt now stating there is no discomfort. Will continue to monitor patient. Pt resting comfortably in bed with sitter at bedside.
[2019-12-31 22:00] VITALS: BP 147/81
[2019-12-31] MEDS: ATORVASTATIN 20 MG TAB PO SCH (22:03)
[2020-01-01 05:00] VITALS: BP 141/85
--- NOTE | 2020-01-01 07:50 | NUR ---
EEG COMPLETED. AWAITING NEUROLOGIST TO READ.
[2020-01-01 09:00] VITALS: BP 127/76
[2020-01-01] MEDS: CYANOCOBALAMIN 500 MCG TAB PO SCH (09:59)
[2020-01-01] MEDS: ENOXAPARIN SOD 40 MG/0.4 ML SYRINGE SC SCH (09:59)
[2020-01-01] MEDS: ASPirin 81 mg TAB PO SCH (10:00)
[2020-01-01] MEDS: CHOLECALCIFEROL (VITD3) 2,000 UNIT CAP PO SCH (10:00)
[2020-01-01] MEDS: NIFEdipine ER 30 MG TAB PO SCH (10:00)
[2020-01-01] MEDS: FAMOTIDINE 20 MG TAB PO SCH (10:00)
[2020-01-01] MEDS: LISINOPRIL 20 MG TAB PO SCH (10:01)
[2020-01-01 13:00] VITALS: BP 120/77
[2020-01-01 14:30] VITALS: BP 120/77
--- NOTE | 2020-01-01 15:01 | NUR ---
DISCHARGE INSTRUCTIONS PROVIDED TO DAUGHTER RYAN. DAUGHTER VERBALIZED UNDERSTANDING FOR FOLLOW UP APPOINTMENT AND PRESCRIPTION ORDER. EDUCATIONAL MATERIAL PROVIDED, ALL QUESTIONS AND CONCERNS ADDRESSED. PER RYAN, WILL COME FOR PT AT 1700.
--- NOTE | 2020-01-01 15:55 | NUR ---
Re-assessment Per ss consult home health for safety, PT, medication management. Mayra patients daughter has been notified and offered a list of home health agencies. Per Mayra she has no preference on who provides service. MD order has been sent to [facility]. Addendum: 01/01/20 at 1556 by KATHY CARLOS Amended: Links added.
--- NOTE | 2020-01-01 17:30 | NUR ---
IV CATHETER DC'D CATHETER INTACT, NO PHLEBITIS. TELE BOX RETURNED TO TELE DEPT.
--- NOTE | 2020-01-01 17:45 | NUR ---
PT SAFELY TRANSPORTED OUT OF UNIT VIA WHEELCHAIR. NO S/S OF DISTRESS.
== END 2020-01-01 18:00 | disposition home health service (06) | DRG 64 ==
LOC: EDBD 09:50 → ER 09:50 → EDUNIT# 09:50 → TELE 09:51 → TELE-WESTW 21:35
PROVIDERS: ADMIT Hospitalist; ATTEND Family Medicine
DX: I63.9 Cerebral infarction, unspecified (principal); G93.41 Metabolic encephalopathy; I69.354 Hemiplegia and hemiparesis following cerebral infarction affecting left non-dominant side; I16.1 Hypertensive emergency; N17.9 Acute kidney failure, unspecified; N18.30 Chronic kidney disease, stage 3 unspecified; E78.5 Hyperlipidemia, unspecified; J44.9 Chronic obstructive pulmonary disease, unspecified; F41.9 Anxiety disorder, unspecified; R00.1 Bradycardia, unspecified; F20.9 Schizophrenia, unspecified; I50.9 Heart failure, unspecified; E78.00 Pure hypercholesterolemia, unspecified; F17.200 Nicotine dependence, unspecified, uncomplicated; F32.9 Major depressive disorder, single episode, unspecified; M10.9 Gout, unspecified; F43.10 Post-traumatic stress disorder, unspecified; Z79.82 Long term (current) use of aspirin; Z79.899 Other long term (current) drug therapy; Z82.49 Family history of ischemic heart disease and other diseases of the circulatory system; Z85.038 Personal history of other malignant neoplasm of large intestine; Z91.81 History of falling
CPT/HCPCS: 36415; 70450; 71045; 80048; 80053; 80061; 82607; 82746; 83036; 83735; 83880; 84443; 84484; 85025; 87081; 93306; 93886; 95819; 96360; 96372; G0378

== ENCOUNTER 2020-08-21 19:20 | Inpatient (IN) | payer MEDICARE ==
[~2020-08-21] VITALS: Ht 177.8 cm; Wt 94.1 kg
[~2020-08-21 19:20] MED LIST changes: +ACET-6 PO; -ALB5IS NEB; +AMLO-496 PO; -AMLO5TAB15 PO; +ATEN-60 PO; +ATOR-47 PO; -ATOR1TAB PO; -CHOL20007 OR; +CHOL500023 PO; -CLON0.5T; +CYAN100056 PO; -DOX100T PO; +FAMO-12 PO; -HALO2TAB PO; +LORA-655 PO; +MELA5TAB8 PO; -METO-6 PO; +PSYL100P8 PO; -TRAZ50TA2; -[UNRECOGNIZED DRUG - CODE]
[2020-08-21] MEDS ORDERED: SODIUM CHLORIDE 0.9% 1,000 ML IVB ONE (21:00)
[2020-08-21 22:16] LABS: Basophils # (auto) 0.1 10 ^3/uL (0-0.2); Basophils % (auto) 0.5 % (0.0-2.0); Eosinophils # (auto) 0 10 ^3/uL (0-0.8); Eosinophils % (auto) 0.2 % (0.0-7.0); Hematocrit 47.6 % (41.0-53.0); Hemoglobin 16.3 g/dL (13.5-17.5); Lymphocytes # (auto) 1.3 10 ^3/uL (0.4-5.4); Mean Corpuscular Hemoglobin 30.5 pg (28.0-32.0); Mean Corpuscular Hgb Conc. 34.2 g/dL (32.0-36.0); Mean Corpuscular Volume 89.1 fL (80.0-100.0); Monocytes # (auto) 0.8 10 ^3/uL (0-1.3); Monocytes % (auto) 6.5 % (0.0-12.0); Neutrophils # (auto) 9.5 10 ^3/uL (1.6-8.6); Neutrophils % (auto) 81.8 % (37.0-80.0); Red Blood Cells 5.34 10^6/uL (4.5-5.90); Red Cell Distribution Width 15.1 % (11.8-14.3); White Blood Cell 11.6 10^3/uL (4.4-10.8)
[2020-08-21 22:35] LABS: INR 0.95 (0.9-1.15)
[2020-08-21 22:36] LABS: Chloride 102 mmol/L (98-107); Potassium 4.3 mmol/L (3.5-5.1); Sodium 133 mmol/L (136-145)
[2020-08-21] MEDS ORDERED: ONDANSETRON HCL 4 MG/2 ML VIAL IV PRN (22:45)
[2020-08-21] MEDS ORDERED: MORPHINE SULF INJ 2 MG/ML SYRINGE 1ML IV PRN (22:45)
[2020-08-21] MEDS ORDERED: ACETAMINOPHEN 325 MG TAB PO PRN (22:45)
[2020-08-21] MEDS ORDERED: NITROGLYCERIN 0.4 MG SL TAB SL PRN (22:45)
[2020-08-21 22:49] LABS: Alanine Aminotransferase 37 U/L (16-61); Albumin 4.3 g/dL (3.4-5.0); Alkaline Phosphatase 98 U/L (45-117); Anion Gap 11 (5-15); Aspartate Aminotransferase 18 U/L (15-37); BUN/Creatinine Ratio 14.1; Bilirubin, Total 0.6 mg/dL (0.2-1.0); Blood Urea Nitrogen 29 mg/dL (7-18); Calcium 11.6 mg/dL (8.5-10.1); Carbon Dioxide 20 mmol/L (21-32); GFR African American 41 mL/min; GFR Non-African American 34 mL/min; Glucose 111 mg/dL (74-106); Magnesium 2.2 mg/dL (1.6-2.6); Total Protein 8.5 g/dL (6.4-8.2)
[2020-08-22] VITALS (8 sets, daily range): BP systolic 116–173; BP diastolic 65–99
[2020-08-22] MEDS ORDERED: LABETALOL HCL 5 MG/ML 4ML SYRINGE IV ONE (01:45)
[2020-08-22] MEDS ORDERED: dilTIAZem 25 MG/5 ML VIAL IV ONE (03:00)
[2020-08-22 05:04] LABS: Anion Gap 9 (5-15); BUN/Creatinine Ratio 14.4; Blood Urea Nitrogen 28 mg/dL (7-18); Calcium 10.9 mg/dL (8.5-10.1); Carbon Dioxide 21 mmol/L (21-32); Chloride 106 mmol/L (98-107); GFR African American 44 mL/min; GFR Non-African American 36 mL/min; Glucose 112 mg/dL (74-106); Potassium 4.9 mmol/L (3.5-5.1); Sodium 136 mmol/L (136-145)
[2020-08-22 05:50] LABS: Basophils # (auto) 0 10 ^3/uL (0-0.2); Basophils % (auto) 0.2 % (0.0-2.0); Eosinophils # (auto) 0 10 ^3/uL (0-0.8); Eosinophils % (auto) 0.1 % (0.0-7.0); Hematocrit 49.2 % (41.0-53.0); Hemoglobin 16.5 g/dL (13.5-17.5); Lymphocytes # (auto) 1.2 10 ^3/uL (0.4-5.4); Lymphocytes % (auto) 7.3 % (10.0-50.0); Mean Corpuscular Hemoglobin 30.4 pg (28.0-32.0); Mean Corpuscular Hgb Conc. 33.6 g/dL (32.0-36.0); Mean Corpuscular Volume 90.4 fL (80.0-100.0); Monocytes # (auto) 0.8 10 ^3/uL (0-1.3); Monocytes % (auto) 5.2 % (0.0-12.0); Neutrophils # (auto) 14.1 10 ^3/uL (1.6-8.6); Neutrophils % (auto) 87.2 % (37.0-80.0); Red Blood Cells 5.44 10^6/uL (4.5-5.90); Red Cell Distribution Width 15.4 % (11.8-14.3); White Blood Cell 16.2 10^3/uL (4.4-10.8)
[2020-08-22] MEDS ORDERED: LORazepam 2MG/ML-1ML VIAL IV PRN (08:45)
[2020-08-22] MEDS: ASPirin 81 mg TAB PO SCH (09:40)
[2020-08-22] MEDS: amLODIPine BESYLATE 5 MG TAB PO SCH (09:41)
[2020-08-22] MEDS: ENOXAPARIN SOD 40 MG/0.4 ML SYRINGE SC SCH (09:41)
[2020-08-22] MEDS ORDERED: ASPirin 81 mg TAB PO SCH (10:00)
[2020-08-22] MEDS ORDERED: FAMOTIDINE 20 MG TAB PO SCH (10:00)
[2020-08-22] MEDS ORDERED: ATENOLOL 50 MG TAB PO SCH (10:00)
[2020-08-22] MEDS ORDERED: hydrALAZINE HCL 20 MG/ML VL IV PRN (14:00)
[2020-08-22] MEDS: SODIUM CHLORIDE 0.9% 1,000 ML IV SCH (15:32)
[2020-08-22] MEDS: hydrALAZINE HCL 25 MG TAB PO SCH ×2 (18:20→23:21)
[2020-08-22] MEDS ORDERED: METOPROLOL TARTRATE 25 MG TAB PO SCH (22:00)
[2020-08-22] MEDS ORDERED: ATORVASTATIN 20 MG TAB PO SCH (22:00)
[2020-08-23 05:00] VITALS: BP 119/67
[2020-08-23] MEDS: hydrALAZINE HCL 25 MG TAB PO SCH ×3 (05:42→22:25)
[2020-08-23 07:41] LABS: Basophils # (auto) 0.1 10 ^3/uL (0-0.2); Basophils % (auto) 0.7 % (0.0-2.0); Eosinophils # (auto) 0.2 10 ^3/uL (0-0.8); Eosinophils % (auto) 1.9 % (0.0-7.0); Hematocrit 47.2 % (41.0-53.0); Hemoglobin 15.8 g/dL (13.5-17.5); Lymphocytes % (auto) 23.4 % (10.0-50.0); Mean Corpuscular Hemoglobin 29.9 pg (28.0-32.0); Mean Corpuscular Hgb Conc. 33.5 g/dL (32.0-36.0); Mean Corpuscular Volume 89.2 fL (80.0-100.0); Monocytes # (auto) 1.3 10 ^3/uL (0-1.3); Monocytes % (auto) 9.9 % (0.0-12.0); Neutrophils # (auto) 8.2 10 ^3/uL (1.6-8.6); Neutrophils % (auto) 64.1 % (37.0-80.0); Red Blood Cells 5.29 10^6/uL (4.5-5.90); Red Cell Distribution Width 15.6 % (11.8-14.3); White Blood Cell 12.8 10^3/uL (4.4-10.8)
[2020-08-23 09:00] VITALS: BP 91/46
[2020-08-23] MEDS: ASPirin 81 mg TAB PO SCH (09:37)
[2020-08-23] MEDS: SODIUM CHLORIDE 0.9% 1,000 ML IV SCH ×2 (09:38→12:54)
[2020-08-23] MEDS: FAMOTIDINE 20 MG TAB PO SCH (09:38)
[2020-08-23] MEDS: ENOXAPARIN SOD 40 MG/0.4 ML SYRINGE SC SCH (09:38)
[2020-08-23] MEDS: amLODIPine BESYLATE 5 MG TAB PO SCH (09:47)
[2020-08-23] MEDS ORDERED: LIDOCAINE 2% JELLY 11ml (GLYDO) UR ONE (11:00)
[2020-08-23 12:23] LABS: Albumin 3.4 g/dL (3.4-5.0); Magnesium 1.9 mg/dL (1.6-2.6); Potassium 4.4 mmol/L (3.5-5.1)
[2020-08-23 12:29] LABS: Bilirubin, Total 0.6 mg/dL (0.2-1.0); Calcium 11.4 mg/dL (8.5-10.1); Total Protein 7.2 g/dL (6.4-8.2)
[2020-08-23] MEDS ORDERED: CHOLECALCIFEROL (VITD3) 2,000 UNIT CAP/TAB PO ONE (12:30)
[2020-08-23] MEDS ORDERED: hydrALAZINE HCL 20 MG/ML VL IV PRN (12:30)
[2020-08-23 12:39] VITALS: BP 103/57
[2020-08-23 13:12] LABS: Urine Bacteria MOD /hpf (None Seen); Urine Blood Negative /uL (Negative); Urine Specific Gravity 1.012 (1.001-1.035); Urine WBC <1 /hpf (0 - 3)
[2020-08-23 13:22] LABS: Alcohol, Urine < 3.0 mg/dL (0-10); Amphetamine Screen, Urine NEGATIVE (NEGATIVE); Barbiturate Scree,Urine NEGATIVE (NEGATIVE); Benzodiazephine Screen, Urine NEGATIVE (NEGATIVE); Cannabinoid Screen, Urine NEGATIVE (NEGATIVE); Cocaine Screen, Urine NEGATIVE (NEGATIVE); Opiate Scree,Urine NEGATIVE (NEGATIVE); Phencyclidine Screen, Urine NEGATIVE (NEGATIVE)
[2020-08-23 16:41] VITALS: BP 118/64
[2020-08-23] MEDS: ATORVASTATIN 20 MG TAB PO SCH (22:25)
[2020-08-24 05:00] VITALS: BP 132/65
[2020-08-24] MEDS: SODIUM CHLORIDE 0.9% 1,000 ML IV SCH ×2 (05:42→21:50)
[2020-08-24] MEDS: hydrALAZINE HCL 25 MG TAB PO SCH ×3 (05:42→22:44)
[2020-08-24 06:49] LABS: Basophils # (auto) 0 10 ^3/uL (0-0.2); Basophils % (auto) 0.5 % (0.0-2.0); Eosinophils # (auto) 0.2 10 ^3/uL (0-0.8); Eosinophils % (auto) 2.7 % (0.0-7.0); Hematocrit 45.1 % (41.0-53.0); Hemoglobin 15.1 g/dL (13.5-17.5); Lymphocytes # (auto) 2.5 10 ^3/uL (0.4-5.4); Lymphocytes % (auto) 28.3 % (10.0-50.0); Mean Corpuscular Hgb Conc. 33.6 g/dL (32.0-36.0); Mean Corpuscular Volume 89.3 fL (80.0-100.0); Monocytes # (auto) 0.8 10 ^3/uL (0-1.3); Monocytes % (auto) 9.6 % (0.0-12.0); Neutrophils # (auto) 5.2 10 ^3/uL (1.6-8.6); Neutrophils % (auto) 58.9 % (37.0-80.0); Nucleated Red Blood Cells % 0.1 %; Red Blood Cells 5.05 10^6/uL (4.5-5.90); Red Cell Distribution Width 15.4 % (11.8-14.3); White Blood Cell 8.8 10^3/uL (4.4-10.8)
[2020-08-24 07:29] LABS: BUN/Creatinine Ratio 16.5; Calcium 11.5 mg/dL (8.5-10.1); Potassium 4.5 mmol/L (3.5-5.1)
[2020-08-24 08:31] VITALS: BP 141/75
[2020-08-24] MEDS: ASPirin 81 mg TAB PO SCH (09:01)
[2020-08-24] MEDS: amLODIPine BESYLATE 5 MG TAB PO SCH (09:03)
[2020-08-24] MEDS: FAMOTIDINE 20 MG TAB PO SCH (09:04)
[2020-08-24] MEDS: ENOXAPARIN SOD 40 MG/0.4 ML SYRINGE SC SCH (09:04)
[2020-08-24] MEDS ORDERED: CHOLECALCIFEROL (VITD3) 2,000 UNIT CAP/TAB PO SCH (10:00)
[2020-08-24 13:00] VITALS: BP 136/78
[2020-08-24 17:31] LABS: Protein, Urine 27.9 mg/dL (0.0-11.9)
[2020-08-24 17:53] VITALS: BP 115/76
[2020-08-24 22:00] VITALS: BP 122/72
[2020-08-24] MEDS ORDERED: DONEPEZIL HYDROCHLORIDE 5 MG TAB PO SCH (22:00)
[2020-08-24] MEDS: ATORVASTATIN 20 MG TAB PO SCH (22:43)
[2020-08-25 05:00] VITALS: BP_SYST 138; BP_SYST 158; BP_DIAS 76; BP_DIAS 79
[2020-08-25] MEDS: hydrALAZINE HCL 25 MG TAB PO SCH ×2 (05:33→13:05)
[2020-08-25] MEDS: amLODIPine BESYLATE 5 MG TAB PO SCH (08:29)
[2020-08-25] MEDS: ASPirin 81 mg TAB PO SCH (08:29)
[2020-08-25] MEDS: FAMOTIDINE 20 MG TAB PO SCH (08:30)
[2020-08-25] MEDS: ENOXAPARIN SOD 40 MG/0.4 ML SYRINGE SC SCH (08:30)
[2020-08-25] MEDS ORDERED: cefTRIAXone 1GM/50ML D5W 50 ML IV ONE (12:30)
[2020-08-25] MEDS ORDERED: LEVO500T31 PO ×2 (12:32→15:04)
[2020-08-25] MEDS: SODIUM CHLORIDE 0.9% 1,000 ML IV SCH (13:05)
[2020-08-25] MEDS ORDERED: DONE5TAB80 PO (13:55)
[2020-08-25] MEDS ORDERED: HYDR25TA87 PO (13:55)
[2020-08-25 14:31] LABS: BUN/Creatinine Ratio 11.8; Calcium 11.7 mg/dL (8.5-10.1); Potassium 4.3 mmol/L (3.5-5.1)
== END 2020-08-25 17:15 | disposition home health service (06) | DRG 682 ==
LOC: EDBD 19:20 → ER 19:32 → TELE 22:45 → TELE-WESTW 23:52
PROVIDERS: ADMIT Nurse Practitioner; ATTEND Internal Medicine
DX: N17.0 Acute kidney failure with tubular necrosis (principal); G93.41 Metabolic encephalopathy; R65.10 Systemic inflammatory response syndrome (SIRS) of non-infectious origin without acute organ dysfunction; I69.354 Hemiplegia and hemiparesis following cerebral infarction affecting left non-dominant side; I13.0 Hypertensive heart and chronic kidney disease with heart failure and stage 1 through stage 4 chronic kidney disease, or unspecified chronic kidney disease; N39.0 Urinary tract infection, site not specified; E86.0 Dehydration; J44.9 Chronic obstructive pulmonary disease, unspecified; M10.9 Gout, unspecified; F43.10 Post-traumatic stress disorder, unspecified; F41.1 Generalized anxiety disorder; I44.0 Atrioventricular block, first degree; E66.3 Overweight; E55.9 Vitamin D deficiency, unspecified; E78.5 Hyperlipidemia, unspecified; F01.50 Vascular dementia, unspecified severity, without behavioral disturbance, psychotic disturbance, mood disturbance, and anxiety; I50.9 Heart failure, unspecified; N18.31 Chronic kidney disease, stage 3a; N47.1 Phimosis; R13.10 Dysphagia, unspecified; G30.9 Alzheimer's disease, unspecified; F02.80 Dementia in other diseases classified elsewhere, unspecified severity, without behavioral disturbance, psychotic disturbance, mood disturbance, and anxiety; Z20.822 Contact with and (suspected) exposure to COVID-19; R32 Unspecified urinary incontinence; Z79.82 Long term (current) use of aspirin; Z79.899 Other long term (current) drug therapy; Z82.49 Family history of ischemic heart disease and other diseases of the circulatory system; Z85.038 Personal history of other malignant neoplasm of large intestine; Z68.29 Body mass index [BMI] 29.0-29.9, adult
CPT/HCPCS: 36415; 70450; 71045; 80048; 80053; 80061; 80307; 81001; 82306; 82570; 82784; 83036; 83735; 83880; 83883; 83930; 83970; 84100; 84155; 84156; 84165; 84443; 84484; 85025; 85610; 85730; 86334; 87040; 87086; 87088; 87186; 87426; 93005; 93306; 93886; 95819; 96361; 96374; 97110; 97116; 97530; G0378; J0696; J3490

== ENCOUNTER 2020-12-26 09:41 | Inpatient (IN) | payer MEDICARE ==
[~2020-12-26] VITALS: Ht 182.9 cm; Wt 91.3 kg
[~2020-12-26 09:41] MED LIST changes: -ATEN-60 PO; -CHOL500023 PO; +DONE5TAB80 PO; +HYDR25TA87 PO; +LEVO500T31 PO
[2020-12-26] MEDS ORDERED: cefTRIAXone 1GM/50ML D5W 50 ML IV ONE (10:45)
[2020-12-26 10:52] LABS: Basophils # (auto) 0.1 10 ^3/uL (0-0.2); Basophils % (auto) 0.7 % (0.0-2.0); Eosinophils # (auto) 0.3 10 ^3/uL (0-0.8); Eosinophils % (auto) 1.9 % (0.0-7.0); Hematocrit 46.3 % (41.0-53.0); Lymphocytes # (auto) 2.3 10 ^3/uL (0.4-5.4); Lymphocytes % (auto) 17.1 % (10.0-50.0); Mean Corpuscular Hemoglobin 28.2 pg (28.0-32.0); Mean Corpuscular Hgb Conc. 32.4 g/dL (32.0-36.0); Monocytes # (auto) 0.6 10 ^3/uL (0-1.3); Monocytes % (auto) 4.2 % (0.0-12.0); Neutrophils # (auto) 10.1 10 ^3/uL (1.6-8.6); Neutrophils % (auto) 76.1 % (37.0-80.0); Nucleated Red Blood Cells % 0.1 %; Red Blood Cells 5.32 10^6/uL (4.5-5.90); Red Cell Distribution Width 15.4 % (11.8-14.3); White Blood Cell 13.3 10^3/uL (4.4-10.8)
[2020-12-26 11:23] LABS: Potassium 3.9 mmol/L (3.5-5.1)
[2020-12-26 11:32] LABS: Albumin 3.7 g/dL (3.4-5.0); BUN/Creatinine Ratio 12.4; Bilirubin, Total 0.6 mg/dL (0.2-1.0); Calcium 12.2 mg/dL (8.5-10.1); Total Protein 8.4 g/dL (6.4-8.2)
[2020-12-26] MEDS ORDERED: HYDROcodone-ACET 5/325MG TAB PO PRN (17:00)
[2020-12-26] MEDS ORDERED: MORPHINE SULFATE INJECTION 2 MG/ML SYRG IV PRN ×2 (17:00)
[2020-12-26] MEDS ORDERED: hydrALAZINE HCL 20 MG/ML VL IV PRN (17:00)
[2020-12-26] MEDS ORDERED: ONDANSETRON HCL 4 MG/2 ML VIAL IV PRN (17:00)
[2020-12-26] MEDS: SODIUM CHLORIDE 0.9% 1,000 ML IV SCH (17:00)
[2020-12-26] MEDS ORDERED: NITROGLYCERIN 0.4 MG SL TAB SL PRN (17:00)
[2020-12-26] MEDS ORDERED: ACETAMINOPHEN 500 MG TAB PO PRN (17:00)
[2020-12-26] MEDS: TAMSULOSIN HYDROCHLORIDE 0.4 MG CAP PO SCH (17:42)
[2020-12-26] MEDS: hydrALAZINE HCL 25 MG TAB PO SCH (22:48)
[2020-12-26] MEDS: ATORVASTATIN 20 MG TAB PO SCH (22:49)
[2020-12-26] MEDS: FAMOTIDINE 20 MG TAB PO SCH (22:49)
[2020-12-27] MEDS: SODIUM CHLORIDE 0.9% 1,000 ML IV SCH ×2 (06:35→17:31)
[2020-12-27] MEDS: hydrALAZINE HCL 25 MG TAB PO SCH ×3 (06:35→23:04)
[2020-12-27 07:24] LABS: Basophils # (auto) 0.1 10 ^3/uL (0-0.2); Basophils % (auto) 0.7 % (0.0-2.0); Eosinophils # (auto) 0.2 10 ^3/uL (0-0.8); Eosinophils % (auto) 1.3 % (0.0-7.0); Hematocrit 41.9 % (41.0-53.0); Hemoglobin 14.3 g/dL (13.5-17.5); Lymphocytes # (auto) 1.2 10 ^3/uL (0.4-5.4); Lymphocytes % (auto) 10.1 % (10.0-50.0); Mean Corpuscular Hemoglobin 29.6 pg (28.0-32.0); Mean Corpuscular Hgb Conc. 34.1 g/dL (32.0-36.0); Mean Corpuscular Volume 86.7 fL (80.0-100.0); Monocytes # (auto) 0.9 10 ^3/uL (0-1.3); Monocytes % (auto) 7.7 % (0.0-12.0); Neutrophils # (auto) 9.4 10 ^3/uL (1.6-8.6); Neutrophils % (auto) 80.2 % (37.0-80.0); Red Blood Cells 4.83 10^6/uL (4.5-5.90); Red Cell Distribution Width 15.3 % (11.8-14.3); White Blood Cell 11.8 10^3/uL (4.4-10.8)
[2020-12-27 07:39] LABS: Calcium 11.2 mg/dL (8.5-10.1); Potassium 4.5 mmol/L (3.5-5.1)
[2020-12-27] MEDS: cefTRIAXone 1GM/50ML D5W 50 ML IV SCH (08:38)
[2020-12-27] MEDS: amLODIPine BESYLATE 5 MG TAB PO SCH (10:01)
[2020-12-27] MEDS: FAMOTIDINE 20 MG TAB PO SCH (10:02)
[2020-12-27 10:48] LABS: Urine Bacteria NONE SEEN /hpf (None Seen); Urine Blood 1+ /uL (Negative); Urine Hyaline Cast FEW /lpf (0 - 2); Urine Mucus FEW (None Seen); Urine Specific Gravity 1.015 (1.001-1.035); Urine WBC 77 /hpf (0 - 3)
[2020-12-27] MEDS: TAMSULOSIN HYDROCHLORIDE 0.4 MG CAP PO SCH (18:48)
[2020-12-27] MEDS: ATORVASTATIN 20 MG TAB PO SCH (23:04)
[2020-12-28 04:55] VITALS: BP 116/70
[2020-12-28 05:28] LABS: Basophils # (auto) 0.1 10 ^3/uL (0-0.2); Eosinophils # (auto) 0.3 10 ^3/uL (0-0.8); Eosinophils % (auto) 3.7 % (0.0-7.0); Hematocrit 43.4 % (41.0-53.0); Hemoglobin 14.7 g/dL (13.5-17.5); Lymphocytes # (auto) 1.6 10 ^3/uL (0.4-5.4); Lymphocytes % (auto) 20.4 % (10.0-50.0); Mean Corpuscular Hemoglobin 29.1 pg (28.0-32.0); Mean Corpuscular Hgb Conc. 33.8 g/dL (32.0-36.0); Monocytes # (auto) 0.7 10 ^3/uL (0-1.3); Neutrophils # (auto) 5.2 10 ^3/uL (1.6-8.6); Neutrophils % (auto) 65.9 % (37.0-80.0); Nucleated Red Blood Cells % 0.1 %; Red Blood Cells 5.05 10^6/uL (4.5-5.90); Red Cell Distribution Width 15.3 % (11.8-14.3); White Blood Cell 7.9 10^3/uL (4.4-10.8)
[2020-12-28 05:45] LABS: BUN/Creatinine Ratio 11.5; Calcium 10.6 mg/dL (8.5-10.1); Magnesium 1.9 mg/dL (1.6-2.6)
[2020-12-28] MEDS: hydrALAZINE HCL 25 MG TAB PO SCH ×3 (06:45→21:32)
[2020-12-28 09:00] VITALS: BP 121/70
[2020-12-28] MEDS: cefTRIAXone 1GM/50ML D5W 50 ML IV SCH (10:12)
[2020-12-28] MEDS: FAMOTIDINE 20 MG TAB PO SCH (10:13)
[2020-12-28] MEDS: SODIUM CHLORIDE 0.9% 1,000 ML IV SCH (10:13)
[2020-12-28] MEDS: amLODIPine BESYLATE 5 MG TAB PO SCH (10:13)
[2020-12-28] MEDS ORDERED: CHOL20007 PO (10:45)
[2020-12-28] MEDS ORDERED: TAMS0.4C36 PO (10:45)
[2020-12-28] MEDS ORDERED: DOCU100T15 PO (10:45)
[2020-12-28] MEDS ORDERED: KEP500T PO (10:45)
[2020-12-28] MEDS ORDERED: ATOR-47 PO (10:47)
[2020-12-28 13:00] VITALS: BP 112/69
[2020-12-28] MEDS ORDERED: MAGNESIUM SULFATE 1GM/100ML 100 ML IV ONE (16:15)
[2020-12-28 17:00] VITALS: BP 138/70
[2020-12-28] MEDS: TAMSULOSIN HYDROCHLORIDE 0.4 MG CAP PO SCH (17:02)
[2020-12-28] MEDS: ATORVASTATIN 20 MG TAB PO SCH (21:31)
[2020-12-28 22:00] VITALS: BP 122/69
[2020-12-29] MEDS: SODIUM CHLORIDE 0.9% 1,000 ML IV SCH ×2 (04:50→16:26)
[2020-12-29 05:00] VITALS: BP 125/75
[2020-12-29] MEDS: hydrALAZINE HCL 25 MG TAB PO SCH ×3 (06:49→22:53)
[2020-12-29 06:50] LABS: BUN/Creatinine Ratio 15.4; Calcium 9.9 mg/dL (8.5-10.1); Magnesium 1.9 mg/dL (1.6-2.6); Potassium 3.9 mmol/L (3.5-5.1)
[2020-12-29 08:51] VITALS: BP 146/71
[2020-12-29] MEDS: cefTRIAXone 1GM/50ML D5W 50 ML IV SCH (09:04)
[2020-12-29] MEDS: amLODIPine BESYLATE 5 MG TAB PO SCH (09:11)
[2020-12-29] MEDS: FAMOTIDINE 20 MG TAB PO SCH (09:11)
[2020-12-29 13:00] VITALS: BP 135/71
[2020-12-29] MEDS ORDERED: MEROPENEM 1GM IVPB 100 ML IV ONE (13:45)
[2020-12-29 16:34] VITALS: BP 160/67
[2020-12-29] MEDS: TAMSULOSIN HYDROCHLORIDE 0.4 MG CAP PO SCH (17:45)
[2020-12-29 22:00] VITALS: BP 150/78
[2020-12-29] MEDS: DONEPEZIL HYDROCHLORIDE 5 MG TAB PO SCH (22:53)
[2020-12-29] MEDS: ATORVASTATIN 20 MG TAB PO SCH (22:53)
[2020-12-30] MEDS: MEROPENEM 1GM IVPB 100 ML IV SCH ×3 (00:42→22:00)
[2020-12-30 05:00] VITALS: BP 146/71
[2020-12-30] MEDS: hydrALAZINE HCL 25 MG TAB PO SCH ×3 (05:13→22:00)
[2020-12-30 06:16] LABS: Basophils # (auto) 0 10 ^3/uL (0-0.2); Basophils % (auto) 0.7 % (0.0-2.0); Eosinophils # (auto) 0.4 10 ^3/uL (0-0.8); Eosinophils % (auto) 5.4 % (0.0-7.0); Hematocrit 36.6 % (41.0-53.0); Hemoglobin 12.3 g/dL (13.5-17.5); Lymphocytes % (auto) 29.3 % (10.0-50.0); Mean Corpuscular Hemoglobin 28.8 pg (28.0-32.0); Mean Corpuscular Hgb Conc. 33.5 g/dL (32.0-36.0); Monocytes # (auto) 0.7 10 ^3/uL (0-1.3); Monocytes % (auto) 10.8 % (0.0-12.0); Neutrophils # (auto) 3.7 10 ^3/uL (1.6-8.6); Neutrophils % (auto) 53.8 % (37.0-80.0); Nucleated Red Blood Cells % 0.2 %; Red Blood Cells 4.26 10^6/uL (4.5-5.90)
[2020-12-30 06:47] LABS: Potassium 3.9 mmol/L (3.5-5.1)
[2020-12-30 06:52] LABS: Calcium 10.2 mg/dL (8.5-10.1)
[2020-12-30 08:30] LABS: INR 1.04 (0.9-1.15)
[2020-12-30 09:30] VITALS: BP 137/86
[2020-12-30] MEDS: amLODIPine BESYLATE 5 MG TAB PO SCH (09:30)
[2020-12-30] MEDS: SODIUM CHLORIDE 0.9% 1,000 ML IV SCH (09:30)
[2020-12-30] MEDS: FAMOTIDINE 20 MG TAB PO SCH (09:34)
[2020-12-30 12:06] VITALS: BP 147/90
[2020-12-30 16:00] VITALS: BP 142/83
[2020-12-30] MEDS: TAMSULOSIN HYDROCHLORIDE 0.4 MG CAP PO SCH (18:00)
[2020-12-30] MEDS ORDERED: ROCURONIUM 10MG/ML 10ML VIAL IV ONE (19:32)
[2020-12-30] MEDS ORDERED: HYDROmorphone HCL 2 MG/ML VL ONE (19:32)
[2020-12-30] MEDS ORDERED: DexAMETHasone SOD PHOS 10MG/1ML VIAL INJ ONE (20:27)
[2020-12-30] MEDS ORDERED: ONDANSETRON HCL 4 MG/2 ML VIAL ONE (20:28)
[2020-12-30] MEDS ORDERED: GLYCOPYRROLATE 0.2 MG/ML 1ML VIAL ONE (20:46)
[2020-12-30] MEDS ORDERED: NEOSTIGMINE 1 MG/ML INJ (10mg/10ML VIAL) ONE (20:46)
[2020-12-30] MEDS ORDERED: METOCLOPRAMIDE HCL 5MG/ml INJ 2ml VIAL IV PRN (21:30)
[2020-12-30] MEDS ORDERED: LABETALOL HCL 5 MG/ML 4ML SYRINGE IV PRN ×2 (21:30)
[2020-12-30] MEDS ORDERED: hydrALAZINE HCL 20 MG/ML VL IV PRN (21:30)
[2020-12-30] MEDS ORDERED: fentaNYL CITRATE 100 MCG/2 ML VL IV PRN (21:30)
[2020-12-30] MEDS ORDERED: ONDANSETRON HCL 4 MG/2 ML VIAL IV PRN (21:30)
[2020-12-30] MEDS ORDERED: HYDROmorphone HCL 2 MG/ML VL IV PRN ×2 (21:30)
[2020-12-30] MEDS: hydrALAZINE HCL 20 MG/ML VL IV PRN ×3 (21:45→22:16)
[2020-12-30 22:00] VITALS: BP 140/84
[2020-12-30] MEDS: ATORVASTATIN 20 MG TAB PO SCH (22:00)
[2020-12-30] MEDS: DONEPEZIL HYDROCHLORIDE 5 MG TAB PO SCH (22:00)
[2020-12-31 05:00] VITALS: BP 125/79
[2020-12-31] MEDS: hydrALAZINE HCL 25 MG TAB PO SCH ×3 (06:00→21:23)
[2020-12-31] MEDS: SODIUM CHLORIDE 0.9% 1,000 ML IV SCH (07:04)
[2020-12-31 08:45] VITALS: BP 141/85
[2020-12-31] MEDS: FAMOTIDINE 20 MG TAB PO SCH (09:45)
[2020-12-31] MEDS: BELLADONNA ALKAL/OPIUM (16.2/30MG) RECT SUPP PR SCH (10:00)
[2020-12-31] MEDS: MEROPENEM 1GM IVPB 100 ML IV SCH ×2 (10:00→21:23)
[2020-12-31] MEDS: amLODIPine BESYLATE 5 MG TAB PO SCH (10:30)
[2020-12-31 13:00] VITALS: BP 144/74
[2020-12-31 17:48] VITALS: BP 146/83
[2020-12-31] MEDS: TAMSULOSIN HYDROCHLORIDE 0.4 MG CAP PO SCH (18:00)
[2020-12-31] MEDS: ATORVASTATIN 20 MG TAB PO SCH (21:24)
[2020-12-31] MEDS: DONEPEZIL HYDROCHLORIDE 5 MG TAB PO SCH (21:24)
[2020-12-31 21:58] VITALS: BP 129/82
[2021-01-01] MEDS: SODIUM CHLORIDE 0.9% 1,000 ML IV SCH ×2 (01:45→21:45)
[2021-01-01 05:42] VITALS: BP 137/77
[2021-01-01 06:10] LABS: Basophils # (auto) 0.1 10 ^3/uL (0-0.2); Basophils % (auto) 0.6 % (0.0-2.0); Eosinophils # (auto) 0.3 10 ^3/uL (0-0.8); Eosinophils % (auto) 3.3 % (0.0-7.0); Hemoglobin 12.9 g/dL (13.5-17.5); Lymphocytes # (auto) 1.8 10 ^3/uL (0.4-5.4); Lymphocytes % (auto) 21.2 % (10.0-50.0); Mean Corpuscular Hemoglobin 29.2 pg (28.0-32.0); Mean Corpuscular Volume 88.3 fL (80.0-100.0); Monocytes # (auto) 0.8 10 ^3/uL (0-1.3); Monocytes % (auto) 9.7 % (0.0-12.0); Neutrophils # (auto) 5.7 10 ^3/uL (1.6-8.6); Neutrophils % (auto) 65.2 % (37.0-80.0); Red Blood Cells 4.41 10^6/uL (4.5-5.90); Red Cell Distribution Width 15.2 % (11.8-14.3); White Blood Cell 8.7 10^3/uL (4.4-10.8)
[2021-01-01 06:25] LABS: Anion Gap 8 (5-15); BUN/Creatinine Ratio 15.4; Blood Urea Nitrogen 22 mg/dL (7-18); Calcium 9.5 mg/dL (8.5-10.1); Carbon Dioxide 20 mmol/L (21-32); Chloride 112 mmol/L (98-107); GFR African American 62 mL/min; GFR Non-African American 51 mL/min; Glucose 95 mg/dL (74-106); Potassium 4.1 mmol/L (3.5-5.1); Sodium 140 mmol/L (136-145)
[2021-01-01] MEDS: hydrALAZINE HCL 25 MG TAB PO SCH ×3 (07:01→22:27)
[2021-01-01 09:17] VITALS: BP 142/80
[2021-01-01] MEDS: FAMOTIDINE 20 MG TAB PO SCH (09:37)
[2021-01-01] MEDS: MEROPENEM 1GM IVPB 100 ML IV SCH ×2 (09:37→22:03)
[2021-01-01] MEDS: amLODIPine BESYLATE 5 MG TAB PO SCH (09:38)
[2021-01-01] MEDS: BELLADONNA ALKAL/OPIUM (16.2/30MG) RECT SUPP PR SCH (09:39)
[2021-01-01 13:20] VITALS: BP 124/75
[2021-01-01 16:43] VITALS: BP 146/79
[2021-01-01] MEDS: TAMSULOSIN HYDROCHLORIDE 0.4 MG CAP PO SCH (18:03)
[2021-01-01 22:00] VITALS: BP 157/95
[2021-01-01] MEDS: ATORVASTATIN 20 MG TAB PO SCH (22:02)
[2021-01-01] MEDS: DONEPEZIL HYDROCHLORIDE 5 MG TAB PO SCH (22:02)
[2021-01-02 05:00] VITALS: BP 149/90
[2021-01-02] MEDS: hydrALAZINE HCL 25 MG TAB PO SCH ×3 (06:35→23:02)
[2021-01-02 09:00] VITALS: BP 135/81
[2021-01-02] MEDS: MEROPENEM 1GM IVPB 100 ML IV SCH ×2 (09:50→23:41)
[2021-01-02] MEDS: FAMOTIDINE 20 MG TAB PO SCH (09:53)
[2021-01-02] MEDS: amLODIPine BESYLATE 5 MG TAB PO SCH (09:53)
[2021-01-02] MEDS: BELLADONNA ALKAL/OPIUM (16.2/30MG) RECT SUPP PR SCH ×2 (10:00→10:59)
[2021-01-02 13:00] VITALS: BP 143/88
[2021-01-02 16:58] VITALS: BP 143/83
[2021-01-02] MEDS: SODIUM CHLORIDE 0.9% 1,000 ML IV SCH (17:30)
[2021-01-02] MEDS: TAMSULOSIN HYDROCHLORIDE 0.4 MG CAP PO SCH (18:43)
[2021-01-02 22:00] VITALS: BP 126/81
[2021-01-02] MEDS: DONEPEZIL HYDROCHLORIDE 5 MG TAB PO SCH (23:02)
[2021-01-02] MEDS: ATORVASTATIN 20 MG TAB PO SCH (23:03)
[2021-01-03 05:00] VITALS: BP 152/99
[2021-01-03] MEDS: hydrALAZINE HCL 25 MG TAB PO SCH (06:11)
[2021-01-03 07:53] LABS: Calcium 10.5 mg/dL (8.5-10.1); Magnesium 1.9 mg/dL (1.6-2.6); Potassium 4.1 mmol/L (3.5-5.1)
[2021-01-03 07:55] LABS: BUN/Creatinine Ratio 15.3
[2021-01-03 08:05] LABS: Hematocrit 38.5 % (41.0-53.0); Hemoglobin 13.1 g/dL (13.5-17.5)
[2021-01-03 09:00] VITALS: BP 147/86
[2021-01-03] MEDS: MEROPENEM 1GM IVPB 100 ML IV SCH (09:34)
[2021-01-03] MEDS: BELLADONNA ALKAL/OPIUM (16.2/30MG) RECT SUPP PR SCH (09:35)
[2021-01-03] MEDS: amLODIPine BESYLATE 5 MG TAB PO SCH (09:35)
[2021-01-03] MEDS: FAMOTIDINE 20 MG TAB PO SCH (09:35)
[2021-01-03] MEDS ORDERED: HYDR50TA15 PO (10:26)
[2021-01-03] MEDS ORDERED: CIPR500T4 PO (10:26)
[2021-01-03 12:10] VITALS: BP 147/86
== END 2021-01-03 13:11 | disposition home health service (06) | DRG 853 ==
LOC: ER 09:41 → TELE 16:55 → TELE-WESTW 12-27 21:46 → WEST WING 12-29 18:37
PROVIDERS: ADMIT Nurse Practitioner Acute Care; ATTEND Internal Medicine
PROC: 0T9B70Z Drainage of Bladder with Drainage Device, Via Natural or Artificial Opening (ICD-10-PCS; 2020-12-30)
PROC: 0VB08ZZ Excision of Prostate, Via Natural or Artificial Opening Endoscopic (ICD-10-PCS; principal; 2020-12-30 20:00)
DX: A41.9 Sepsis, unspecified organism (principal); G93.41 Metabolic encephalopathy; S37.30XA Unspecified injury of urethra, initial encounter; N39.0 Urinary tract infection, site not specified; N13.8 Other obstructive and reflux uropathy; I13.0 Hypertensive heart and chronic kidney disease with heart failure and stage 1 through stage 4 chronic kidney disease, or unspecified chronic kidney disease; T83.021A Displacement of indwelling urethral catheter, initial encounter; N40.1 Benign prostatic hyperplasia with lower urinary tract symptoms; I44.1 Atrioventricular block, second degree; R31.0 Gross hematuria; N18.31 Chronic kidney disease, stage 3a; K21.9 Gastro-esophageal reflux disease without esophagitis; J44.9 Chronic obstructive pulmonary disease, unspecified; Z20.822 Contact with and (suspected) exposure to COVID-19; B96.5 Pseudomonas (aeruginosa) (mallei) (pseudomallei) as the cause of diseases classified elsewhere; E78.5 Hyperlipidemia, unspecified; F01.50 Vascular dementia, unspecified severity, without behavioral disturbance, psychotic disturbance, mood disturbance, and anxiety; F02.80 Dementia in other diseases classified elsewhere, unspecified severity, without behavioral disturbance, psychotic disturbance, mood disturbance, and anxiety; Y73.8 Miscellaneous gastroenterology and urology devices associated with adverse incidents, not elsewhere classified; F41.1 Generalized anxiety disorder; F43.10 Post-traumatic stress disorder, unspecified; F32.A Depression, unspecified; I50.9 Heart failure, unspecified; G30.9 Alzheimer's disease, unspecified; R33.8 Other retention of urine; Z79.82 Long term (current) use of aspirin; Z90.79 Acquired absence of other genital organ(s); Z86.73 Personal history of transient ischemic attack (TIA), and cerebral infarction without residual deficits; Y92.89 Other specified places as the place of occurrence of the external cause
CPT/HCPCS: 36415; 70450; 71045; 74176; 76775; 80048; 80053; 81001; 83735; 84154; 85014; 85018; 85025; 85610; 85730; 86850; 86900; 86901; 87086; 87088; 87186; 87426; 93005; 93306; 96365; 97110; 97530; G0378; J0696; J1100; J2185; J2405; J3490; J7042

== ENCOUNTER 2021-03-22 09:22 | Inpatient (IN) | payer MEDICARE, OTHER ==
[~2021-03-22] VITALS: Ht 180.3 cm; Wt 91.0 kg
[~2021-03-22 09:22] MED LIST changes: +ASPI-543 PO; +ATOR20TA50 PO; +CHOL20007 PO; +CIPR500T4 PO; +CLON0.5T3 PO; +DOCU100T15 PO; +ENAL10TA12 PO; -HYDR25TA87 PO; +KEP500T PO; -LEVO500T31 PO; -LORA-655 PO; +METO25TA5 PO; +OXCA600T3 PO; +PRA1C PO; +TAMS0.4C36 PO
[2021-03-22] MEDS ORDERED: LORazepam 2MG/ML-1ML VIAL IV ONE (10:15)
[2021-03-22] MEDS ORDERED: SODIUM CHLORIDE 0.9% 1,000 ML IV ONE (10:15)
[2021-03-22 10:21] LABS: Basophils # (auto) 0.1 10 ^3/uL (0-0.2); Basophils % (auto) 0.7 % (0.0-2.0); Eosinophils # (auto) 0.1 10 ^3/uL (0-0.8); Eosinophils % (auto) 1.5 % (0.0-7.0); Hematocrit 44.5 % (41.0-53.0); Lymphocytes # (auto) 1.3 10 ^3/uL (0.4-5.4); Lymphocytes % (auto) 14.2 % (10.0-50.0); Mean Corpuscular Hemoglobin 29.3 pg (28.0-32.0); Mean Corpuscular Hgb Conc. 33.7 g/dL (32.0-36.0); Monocytes # (auto) 0.9 10 ^3/uL (0-1.3); Monocytes % (auto) 10.4 % (0.0-12.0); Neutrophils # (auto) 6.5 10 ^3/uL (1.6-8.6); Neutrophils % (auto) 73.2 % (37.0-80.0); Nucleated Red Blood Cells % 0.2 %; Red Blood Cells 5.11 10^6/uL (4.5-5.90); Red Cell Distribution Width 15.7 % (11.8-14.3); White Blood Cell 8.9 10^3/uL (4.4-10.8)
[2021-03-22 10:35] LABS: INR 0.98 (0.9-1.15); Partial Thromboplastin Time 29.3 sec (23.6-33.0)
[2021-03-22 11:04] LABS: Potassium 3.5 mmol/L (3.5-5.1)
[2021-03-22 11:11] LABS: Albumin 3.4 g/dL (3.4-5.0); BUN/Creatinine Ratio 11.2; Calcium 11.2 mg/dL (8.5-10.1)
[2021-03-22 11:14] LABS: Bilirubin, Total 0.4 mg/dL (0.2-1.0); Total Protein 8.1 g/dL (6.4-8.2)
[2021-03-22] MEDS ORDERED: FUROSEMIDE 40 MG/4 ML VIAL IV ONE (11:45)
[2021-03-22] MEDS ORDERED: NITROGLYCERIN 0.4 MG SL TAB SL PRN ×2 (14:15→19:45)
[2021-03-22] MEDS ORDERED: MORPHINE SULFATE INJECTION 2 MG/ML SYRG IV PRN ×4 (14:15→19:45)
[2021-03-22 17:02] LABS: Magnesium 1.8 mg/dL (1.6-2.6)
[2021-03-22 17:19] LABS: Phosphorus 0.9 mg/dL (2.5-4.90)
[2021-03-22] MEDS ORDERED: MAGNESIUM SULFATE 1GM/100ML 100 ML IV ONE (19:00)
[2021-03-22] MEDS ORDERED: POTASSIUM PHOSPHATE 44 MEQ in D5W 5% 250 ML IV ONE (19:00)
[2021-03-22] MEDS ORDERED: LORazepam 2MG/ML-1ML VIAL IV PRN (19:15)
[2021-03-22] MEDS: SODIUM CHLORIDE 0.9% 1,000 ML IV SCH (19:15)
[2021-03-22] MEDS ORDERED: ZOLEDRONIC ACID 4 MG in SODIUM CHL 0.9% 100 ML IV ONE (19:15)
[2021-03-22] MEDS ORDERED: CHOLECALCIFEROL (VITD3) 2,000 UNIT CAP/TAB PO ONE (19:15)
[2021-03-22] MEDS ORDERED: cefTRIAXone 1GM/50ML D5W 50 ML IV ONE (19:30)
[2021-03-22] MEDS ORDERED: NIFEdipine ER 30 MG TAB PO ONE (19:30)
[2021-03-22] MEDS ORDERED: SODIUM CHLORIDE 0.9% 1,000 ML IV SCH (19:30)
[2021-03-22] MEDS ORDERED: METOPROLOL SUCCINATE XL 50 MG TAB PO ONE (19:30)
[2021-03-22] MEDS ORDERED: ALUM & MAG HYDROX-SIMETH LIQ(MAALOX) 30 ML PO PRN (19:45)
[2021-03-22] MEDS ORDERED: ONDANSETRON HCL 4 MG/2 ML VIAL IV PRN (19:45)
[2021-03-22] MEDS ORDERED: FAMOTIDINE (10MG/ML) 2ML VL IV ONE (19:45)
[2021-03-22] MEDS ORDERED: HYDROcodone-ACET 5/325MG TAB PO PRN (19:45)
[2021-03-22] MEDS ORDERED: DOCUSATE SOD 100 MG CAP PO PRN (19:45)
[2021-03-22 22:22] LABS: Cholesterol 197 mg/dL (< 200)
[2021-03-22 22:26] LABS: HDL Cholesterol 46 mg/dL (40-59); LDL Cholesterol 120 mg/dL (< 100); Triglycerides 108 mg/dL (< 150)
[2021-03-22] MEDS: ATORVASTATIN 20 MG TAB PO SCH (22:30)
[2021-03-23 04:48] LABS: Basophils # (auto) 0.1 10 ^3/uL (0-0.2); Basophils % (auto) 0.9 % (0.0-2.0); Eosinophils # (auto) 0.2 10 ^3/uL (0-0.8); Eosinophils % (auto) 1.9 % (0.0-7.0); Hematocrit 51.1 % (41.0-53.0); Lymphocytes # (auto) 2.4 10 ^3/uL (0.4-5.4); Lymphocytes % (auto) 22.9 % (10.0-50.0); Mean Corpuscular Hemoglobin 29.1 pg (28.0-32.0); Mean Corpuscular Hgb Conc. 33.2 g/dL (32.0-36.0); Mean Corpuscular Volume 87.5 fL (80.0-100.0); Monocytes # (auto) 1.4 10 ^3/uL (0-1.3); Neutrophils # (auto) 6.4 10 ^3/uL (1.6-8.6); Neutrophils % (auto) 61.3 % (37.0-80.0); Nucleated Red Blood Cells % 0.1 %; Red Blood Cells 5.85 10^6/uL (4.5-5.90); Red Cell Distribution Width 15.5 % (11.8-14.3); White Blood Cell 10.5 10^3/uL (4.4-10.8)
[2021-03-23 05:10] LABS: Albumin 3.4 g/dL (3.4-5.0); Calcium 10.5 mg/dL (8.5-10.1); Potassium 3.8 mmol/L (3.5-5.1)
[2021-03-23 05:19] LABS: Bilirubin, Total 0.4 mg/dL (0.2-1.0); Total Protein 8.3 g/dL (6.4-8.2); Uric Acid 10.2 mg/dL (3.5-7.2)
[2021-03-23 06:45] LABS: INR 0.99 (0.9-1.15); Partial Thromboplastin Time 27.6 sec (23.6-33.0)
[2021-03-23] MEDS: NEUTRA-PHOS TABLET PO SCH ×3 (08:45→20:14)
[2021-03-23 09:42] VITALS: BP 144/89
[2021-03-23] MEDS: METOPROLOL SUCCINATE XL 50 MG TAB PO SCH (10:00)
[2021-03-23] MEDS ORDERED: ENOXAPARIN SOD 40 MG/0.4 ML SYRINGE SC SCH (10:00)
[2021-03-23] MEDS: cefTRIAXone 1GM/50ML D5W 50 ML IV SCH (11:00)
[2021-03-23] MEDS: FAMOTIDINE (10MG/ML) 2ML VL IV SCH (11:00)
[2021-03-23] MEDS: NIFEdipine ER 30 MG TAB PO SCH (11:00)
[2021-03-23] MEDS: SODIUM CHLORIDE 0.9% 1,000 ML IV SCH (11:00)
[2021-03-23] MEDS: ASPirin 81 mg TAB PO SCH (11:00)
[2021-03-23] MEDS: CHOLECALCIFEROL (VITD3) 2,000 UNIT CAP/TAB PO SCH (11:10)
[2021-03-23] MEDS ORDERED: DONE1TAB88 PO (11:27)
[2021-03-23] MEDS ORDERED: ACET-1158 PO (11:42)
[2021-03-23] MEDS ORDERED: LORA2CON PO (11:42)
[2021-03-23] MEDS ORDERED: ONDA-144 PO (11:42)
[2021-03-23] MEDS ORDERED: LACT10SO70 PO (11:42)
[2021-03-23 14:30] VITALS: BP 160/94
[2021-03-23 16:48] VITALS: BP 163/104
[2021-03-23 18:15] VITALS: BP 139/79
[2021-03-23] MEDS: TAMSULOSIN HYDROCHLORIDE 0.4 MG CAP PO SCH (20:12)
[2021-03-23] MEDS: PRAZOSIN HCL 1 MG CAP PO SCH (20:13)
[2021-03-23] MEDS: ENOXAPARIN SOD 100 MG/1 ML SYRINGE SC SCH (20:14)
[2021-03-23] MEDS: ATORVASTATIN 20 MG TAB PO SCH (20:14)
[2021-03-23 22:00] VITALS: BP 162/99
[2021-03-24 05:00] VITALS: BP 169/89
[2021-03-24] MEDS: hydrALAZINE HCL 20 MG/ML VL IV PRN ×3 (06:35→21:58)
[2021-03-24 07:48] LABS: Basophils # (auto) 0.3 10 ^3/uL (0-0.2); Basophils % (auto) 3.1 % (0.0-2.0); Eosinophils # (auto) 0.2 10 ^3/uL (0-0.8); Eosinophils % (auto) 1.9 % (0.0-7.0); Hematocrit 49.6 % (41.0-53.0); Hemoglobin 16.7 g/dL (13.5-17.5); Lymphocytes # (auto) 2.9 10 ^3/uL (0.4-5.4); Lymphocytes % (auto) 30.9 % (10.0-50.0); Mean Corpuscular Hemoglobin 29.3 pg (28.0-32.0); Mean Corpuscular Hgb Conc. 33.6 g/dL (32.0-36.0); Mean Corpuscular Volume 87.1 fL (80.0-100.0); Monocytes # (auto) 0.8 10 ^3/uL (0-1.3); Monocytes % (auto) 8.2 % (0.0-12.0); Neutrophils # (auto) 5.3 10 ^3/uL (1.6-8.6); Neutrophils % (auto) 55.9 % (37.0-80.0); Nucleated Red Blood Cells % 0.1 %; Red Blood Cells 5.69 10^6/uL (4.5-5.90); Red Cell Distribution Width 15.8 % (11.8-14.3); White Blood Cell 9.4 10^3/uL (4.4-10.8)
[2021-03-24 07:58] LABS: Albumin 3.7 g/dL (3.4-5.0); Bilirubin, Total 0.5 mg/dL (0.2-1.0); Calcium 11.1 mg/dL (8.5-10.1); Total Protein 8.4 g/dL (6.4-8.2)
[2021-03-24 08:00] VITALS: BP 173/88
[2021-03-24] MEDS: cefTRIAXone 1GM/50ML D5W 50 ML IV SCH (08:37)
[2021-03-24] MEDS: FAMOTIDINE (10MG/ML) 2ML VL IV SCH (08:37)
[2021-03-24] MEDS: METOPROLOL SUCCINATE XL 50 MG TAB PO SCH (08:41)
[2021-03-24] MEDS: NEUTRA-PHOS TABLET PO SCH ×3 (08:42→17:47)
[2021-03-24] MEDS: NIFEdipine ER 30 MG TAB PO SCH (08:42)
[2021-03-24] MEDS: CHOLECALCIFEROL (VITD3) 2,000 UNIT CAP/TAB PO SCH (08:42)
[2021-03-24] MEDS: ASPirin 81 mg TAB PO SCH (08:43)
[2021-03-24] MEDS: ENOXAPARIN SOD 100 MG/1 ML SYRINGE SC SCH ×2 (08:43→21:56)
[2021-03-24] MEDS: LORazepam 0.5 MG TAB PO PRN (08:59)
[2021-03-24 09:00] VITALS: BP 173/88
[2021-03-24 13:00] VITALS: BP 153/83
[2021-03-24] MEDS ORDERED: IOHEXOL 350 MG/ML 100ML IJ ONE ×2 (13:41→18:54)
[2021-03-24] MEDS ORDERED: PAMIDRONATE DISODIUM 90 MG in SOD CHL 0.45% 1,000 ML IV ONE (15:30)
[2021-03-24 17:03] VITALS: BP 134/71
[2021-03-24] MEDS: TAMSULOSIN HYDROCHLORIDE 0.4 MG CAP PO SCH (17:45)
[2021-03-24] MEDS: PRAZOSIN HCL 1 MG CAP PO SCH (17:46)
[2021-03-24 21:50] VITALS: BP 173/88
[2021-03-24] MEDS: ATORVASTATIN 20 MG TAB PO SCH (21:56)
[2021-03-25 04:38] VITALS: BP 131/73
[2021-03-25 05:36] LABS: Basophils # (auto) 0.1 10 ^3/uL (0-0.2); Basophils % (auto) 0.7 % (0.0-2.0); Eosinophils # (auto) 0 10 ^3/uL (0-0.8); Eosinophils % (auto) 0.2 % (0.0-7.0); Hemoglobin 14.6 g/dL (13.5-17.5); Lymphocytes # (auto) 1.7 10 ^3/uL (0.4-5.4); Lymphocytes % (auto) 19.3 % (10.0-50.0); Mean Corpuscular Hemoglobin 29.2 pg (28.0-32.0); Mean Corpuscular Hgb Conc. 33.9 g/dL (32.0-36.0); Mean Corpuscular Volume 86.2 fL (80.0-100.0); Monocytes # (auto) 0.6 10 ^3/uL (0-1.3); Monocytes % (auto) 7.1 % (0.0-12.0); Neutrophils # (auto) 6.4 10 ^3/uL (1.6-8.6); Neutrophils % (auto) 72.7 % (37.0-80.0); Nucleated Red Blood Cells % 0.2 %; Red Blood Cells 4.98 10^6/uL (4.5-5.90); Red Cell Distribution Width 15.7 % (11.8-14.3); White Blood Cell 8.7 10^3/uL (4.4-10.8)
[2021-03-25 05:50] LABS: Albumin 3.4 g/dL (3.4-5.0); Magnesium 1.8 mg/dL (1.6-2.6); Potassium 3.7 mmol/L (3.5-5.1)
[2021-03-25 05:56] LABS: BUN/Creatinine Ratio 8.7; Bilirubin, Total 0.5 mg/dL (0.2-1.0); Calcium 10.1 mg/dL (8.5-10.1); Phosphorus 2.2 mg/dL (2.5-4.90); Total Protein 7.4 g/dL (6.4-8.2)
[2021-03-25 07:30] VITALS: BP 173/85
[2021-03-25 09:32] VITALS: BP 147/89
[2021-03-25] MEDS: NEUTRA-PHOS TABLET PO SCH ×3 (09:43→18:13)
[2021-03-25] MEDS: cefTRIAXone 1GM/50ML D5W 50 ML IV SCH (09:44)
[2021-03-25] MEDS: FAMOTIDINE (10MG/ML) 2ML VL IV SCH (09:44)
[2021-03-25] MEDS: ASPirin 81 mg TAB PO SCH (09:44)
[2021-03-25] MEDS: NIFEdipine ER 30 MG TAB PO SCH (09:46)
[2021-03-25] MEDS: METOPROLOL SUCCINATE XL 50 MG TAB PO SCH (09:47)
[2021-03-25] MEDS: CHOLECALCIFEROL (VITD3) 2,000 UNIT CAP/TAB PO SCH (09:48)
[2021-03-25] MEDS: ENOXAPARIN SOD 100 MG/1 ML SYRINGE SC SCH ×2 (09:48→21:13)
[2021-03-25] MEDS ORDERED: POTASSIUM PHOSPHATE 22 MEQ in SODIUM CHL 0.9% 100 ML IV ONE ×2 (12:45→17:00)
[2021-03-25 12:48] VITALS: BP 129/70
[2021-03-25 16:32] VITALS: BP 156/75
[2021-03-25] MEDS: TAMSULOSIN HYDROCHLORIDE 0.4 MG CAP PO SCH (18:11)
[2021-03-25] MEDS: PRAZOSIN HCL 1 MG CAP PO SCH (18:13)
[2021-03-25 21:05] VITALS: BP 136/73
[2021-03-25] MEDS: ATORVASTATIN 20 MG TAB PO SCH (21:12)
[2021-03-26] MEDS: LORazepam 0.5 MG TAB PO PRN ×2 (00:26→13:44)
[2021-03-26 05:16] VITALS: BP 136/79
[2021-03-26] MEDS: NEUTRA-PHOS TABLET PO SCH ×2 (08:00→12:38)
[2021-03-26 09:00] VITALS: BP 154/92
[2021-03-26] MEDS: cefTRIAXone 1GM/50ML D5W 50 ML IV SCH (10:10)
[2021-03-26] MEDS: METOPROLOL SUCCINATE XL 50 MG TAB PO SCH (10:11)
[2021-03-26] MEDS: FAMOTIDINE (10MG/ML) 2ML VL IV SCH (10:11)
[2021-03-26] MEDS: ASPirin 81 mg TAB PO SCH (10:11)
[2021-03-26] MEDS: NIFEdipine ER 30 MG TAB PO SCH (10:11)
[2021-03-26] MEDS: ENOXAPARIN SOD 100 MG/1 ML SYRINGE SC SCH (10:12)
[2021-03-26] MEDS: CHOLECALCIFEROL (VITD3) 2,000 UNIT CAP/TAB PO SCH (10:12)
[2021-03-26 13:00] VITALS: BP 154/82
[2021-03-26] MEDS ORDERED: HALOPERIDOL LACTATE 5 MG/ML INJ VIAL IM PRN (13:15)
[2021-03-26 16:10] VITALS: BP 154/82
[2021-03-26 17:00] VITALS: BP 126/72
== END 2021-03-26 18:00 | disposition hospice, home (50) | DRG 101 ==
LOC: EDBD 09:22 → ER 09:22 → OVERFLOW 14:11 → WEST WING 03-23 08:54
PROVIDERS: ADMIT Hospitalist; ATTEND Internal Medicine
PROC: 05HA33Z Insertion of Infusion Device into Left Brachial Vein, Percutaneous Approach (ICD-10-PCS; principal; 2021-03-24)
PROC: B54NZZA Ultrasonography of Left Upper Extremity Veins, Guidance (ICD-10-PCS; 2021-03-24)
DX: G40.409 Other generalized epilepsy and epileptic syndromes, not intractable, without status epilepticus (principal); E87.1 Hypo-osmolality and hyponatremia; N17.9 Acute kidney failure, unspecified; N13.8 Other obstructive and reflux uropathy; N30.00 Acute cystitis without hematuria; I69.354 Hemiplegia and hemiparesis following cerebral infarction affecting left non-dominant side; N18.31 Chronic kidney disease, stage 3a; F03.90 Unspecified dementia, unspecified severity, without behavioral disturbance, psychotic disturbance, mood disturbance, and anxiety; Z74.01 Bed confinement status; N39.490 Overflow incontinence; R62.7 Adult failure to thrive; E78.5 Hyperlipidemia, unspecified; Z20.822 Contact with and (suspected) exposure to COVID-19; F17.210 Nicotine dependence, cigarettes, uncomplicated; E21.0 Primary hyperparathyroidism; K21.9 Gastro-esophageal reflux disease without esophagitis; F80.2 Mixed receptive-expressive language disorder; I12.9 Hypertensive chronic kidney disease with stage 1 through stage 4 chronic kidney disease, or unspecified chronic kidney disease; N31.2 Flaccid neuropathic bladder, not elsewhere classified; E87.8 Other disorders of electrolyte and fluid balance, not elsewhere classified; N40.1 Benign prostatic hyperplasia with lower urinary tract symptoms; Z51.5 Encounter for palliative care; Z79.82 Long term (current) use of aspirin; Z79.899 Other long term (current) drug therapy; I69.322 Dysarthria following cerebral infarction; Z88.1 Allergy status to other antibiotic agents; Z88.5 Allergy status to narcotic agent; Z88.8 Allergy status to other drugs, medicaments and biological substances
CPT/HCPCS: 36415; 70450; 71045; 71275; 78070; 80053; 80061; 82306; 82550; 82962; 83036; 83735; 83880; 84100; 84146; 84443; 84484; 84550; 85025; 85379; 85610; 85730; 87040; 87426; 93005; 93970; 96361; 96374; 96375; G0378; J0696; J3489; J3490; J7060

== ENCOUNTER 2022-09-01 10:25 | Inpatient (IN) | payer MEDICARE, OTHER ==
[~2022-09-01] VITALS: Ht 188 cm; Wt 75.0 kg
[~2022-09-01 10:25] MED LIST changes: +ACET500T58 PO; -AMLO-496 PO; +AMLO1TAB23 PO; -ASPI-543 PO; -ATOR-47 PO; -ATOR20TA50 PO; -CLON0.5T3 PO; -CYAN100056 PO; +DONE1TAB88 PO; -DONE5TAB80 PO; -ENAL10TA12 PO; +LACT10SO70 PO; +LORA2CON PO; -MELA5TAB8 PO; -METO25TA5 PO; +ONDA-144 PO; -OXCA600T3 PO; -PRA1C PO
[2022-09-01] MEDS ORDERED: SODIUM CHLORIDE 0.9% 500 ML IVB ONE (11:00)
[2022-09-01 11:35] LABS: Albumin 3.6 g/dL (3.4-5.0); Calcium 11.3 mg/dL (8.5-10.1); Potassium 3.9 mmol/L (3.5-5.1)
[2022-09-01 11:40] LABS: BUN/Creatinine Ratio 13.6 (10.0-20.0); Bilirubin, Total 0.4 mg/dL (0.2-1.0); Total Protein 7.2 g/dL (6.4-8.2)
[2022-09-01 12:06] LABS: INR 1.01 (0.9-1.15); Partial Thromboplastin Time 21.8 SEC (24.5-34.5)
[2022-09-01 12:08] LABS: Basophils # (auto) 0.1 10 ^3/uL (0-0.2); Basophils % (auto) 0.7 % (0.0-2.0); Eosinophils # (auto) 0.6 10 ^3/uL (0-0.8); Eosinophils % (auto) 8.4 % (0.0-7.0); Hematocrit 46.1 % (41.0-53.0); Hemoglobin 15.4 g/dL (13.5-17.5); Lymphocytes # (auto) 3.4 10 ^3/uL (0.4-5.4); Lymphocytes % (auto) 47.5 % (10.0-50.0); Mean Corpuscular Hgb Conc. 33.4 g/dL (32.0-36.0); Mean Corpuscular Volume 89.7 fL (80.0-100.0); Monocytes # (auto) 0.5 10 ^3/uL (0-1.3); Monocytes % (auto) 6.4 % (0.0-12.0); Neutrophils # (auto) 2.7 10 ^3/uL (1.6-8.6); Nucleated Red Blood Cells % 0.3 %; Red Blood Cells 5.14 10^6/uL (4.5-5.90); Red Cell Distribution Width 14.6 % (11.8-14.3); White Blood Cell 7.3 10^3/uL (4.4-10.8)
[2022-09-01] MEDS ORDERED: MORPHINE SULFATE INJ 2 MG/ml SYRG IV PRN (14:30)
[2022-09-01] MEDS ORDERED: LORazepam 2MG/ML-1ML VIAL IV PRN ×3 (14:30→22:30)
[2022-09-01] MEDS ORDERED: PATIENTS OWN MEDICATION (Ondansetron (Zofran) 4 MG) PO PRN (14:30)
[2022-09-01] MEDS ORDERED: DOCUSATE SOD 100 MG CAP PO PRN (14:30)
[2022-09-01] MEDS ORDERED: ONDANSETRON HCL 4 MG/2 ML VIAL IV PRN ×2 (14:30→14:45)
[2022-09-01] MEDS: SODIUM CHLORIDE 0.9% 1,000 ML IV SCH ×2 (17:50→21:02)
[2022-09-01 19:16] LABS: Urine Bacteria NONE SEEN /hpf (None Seen); Urine Blood Negative /uL (Negative); Urine Specific Gravity 1.009 (1.001-1.035); Urine WBC 2 /hpf (0 - 3)
[2022-09-01 19:24] LABS: Creatinine, Urine 36 mg/dL (30.0-125.0); Sodium Urine 118 mmol/L (40-220)
[2022-09-01 19:25] LABS: Alcohol, Urine < 3.0 mg/dL (0-10); Amphetamine Screen, Urine NEGATIVE (NEGATIVE); Barbiturate Scree,Urine NEGATIVE (NEGATIVE); Benzodiazephine Screen, Urine POSITIVE (NEGATIVE); Cannabinoid Screen, Urine NEGATIVE (NEGATIVE); Cocaine Screen, Urine NEGATIVE (NEGATIVE); Opiate Scree,Urine NEGATIVE (NEGATIVE); Phencyclidine Screen, Urine NEGATIVE (NEGATIVE)
[2022-09-01] MEDS: TAMSULOSIN HYDROCHLORIDE 0.4 MG CAP PO SCH (21:03)
[2022-09-01] MEDS ORDERED: levETIRAcetam 500 MG/5ML INJ IV ONE (23:07)
[2022-09-01] MEDS: FAMOTIDINE 20 MG TAB PO SCH (23:12)
[2022-09-02] MEDS: SODIUM CHLORIDE 0.9% 1,000 ML IV SCH ×2 (01:13→06:11)
[2022-09-02 08:26] LABS: Basophils # (auto) 0.1 10 ^3/uL (0-0.2); Basophils % (auto) 0.6 % (0.0-2.0); Eosinophils # (auto) 0.3 10 ^3/uL (0-0.8); Hematocrit 49.4 % (41.0-53.0); Hemoglobin 16.4 g/dL (13.5-17.5); Lymphocytes # (auto) 2.3 10 ^3/uL (0.4-5.4); Lymphocytes % (auto) 14.7 % (10.0-50.0); Mean Corpuscular Hemoglobin 30.2 pg (28.0-32.0); Mean Corpuscular Hgb Conc. 33.2 g/dL (32.0-36.0); Mean Corpuscular Volume 90.7 fL (80.0-100.0); Monocytes % (auto) 6.1 % (0.0-12.0); Neutrophils # (auto) 12.1 10 ^3/uL (1.6-8.6); Neutrophils % (auto) 76.6 % (37.0-80.0); Red Blood Cells 5.44 10^6/uL (4.5-5.90); Red Cell Distribution Width 14.8 % (11.8-14.3); White Blood Cell 15.7 10^3/uL (4.4-10.8)
[2022-09-02 08:36] LABS: Albumin 3.3 g/dL (3.4-5.0); Calcium 10.6 mg/dL (8.5-10.1); Potassium 4.2 mmol/L (3.5-5.1)
[2022-09-02 08:39] LABS: BUN/Creatinine Ratio 11.8 (10.0-20.0); Total Protein 7.5 g/dL (6.4-8.2)
[2022-09-02] MEDS: FAMOTIDINE 20 MG TAB PO SCH (09:33)
[2022-09-02] MEDS: CHOLECALCIFEROL (VITD3) 2,000 UNIT CAP/TAB PO SCH (09:33)
[2022-09-02] MEDS: ASPirin 81 mg TAB PO SCH (09:33)
[2022-09-02] MEDS: DONEPEZIL HYDROCHLORIDE 5 MG TAB PO SCH (09:33)
[2022-09-02 09:41] LABS: Urine Bacteria FEW /hpf (None Seen); Urine Blood 3+ /uL (Negative); Urine Mucus FEW (None Seen); Urine Specific Gravity 1.015 (1.001-1.035); Urine WBC 75 /hpf (0 - 3)
[2022-09-02] MEDS: amLODIPine BESYLATE 5 MG TAB PO SCH (09:42)
[2022-09-02] MEDS ORDERED: cefTRIAXone 1GM/50ML D5W 50 ML IV ONE (10:15)
[2022-09-02] MEDS: TAMSULOSIN HYDROCHLORIDE 0.4 MG CAP PO SCH (18:10)
[2022-09-02] MEDS ORDERED: levETIRAcetam 500 MG/5ML INJ IV ONE (22:27)
[2022-09-03] MEDS ORDERED: cefTRIAXone 1GM/50ML D5W 50 ML IV SCH (09:00)
[2022-09-03] MEDS: DONEPEZIL HYDROCHLORIDE 5 MG TAB PO SCH (09:58)
[2022-09-03] MEDS: amLODIPine BESYLATE 5 MG TAB PO SCH (09:59)
[2022-09-03] MEDS: ASPirin 81 mg TAB PO SCH (09:59)
[2022-09-03] MEDS: FAMOTIDINE 20 MG TAB PO SCH (09:59)
[2022-09-03 10:09] LABS: Basophils # (auto) 0.1 10 ^3/uL (0-0.2); Basophils % (auto) 0.6 % (0.0-2.0); Eosinophils # (auto) 0.3 10 ^3/uL (0-0.8); Eosinophils % (auto) 2.9 % (0.0-7.0); Hematocrit 47.2 % (41.0-53.0); Hemoglobin 15.9 g/dL (13.5-17.5); Lymphocytes # (auto) 2.4 10 ^3/uL (0.4-5.4); Lymphocytes % (auto) 23.3 % (10.0-50.0); Mean Corpuscular Hemoglobin 30.5 pg (28.0-32.0); Mean Corpuscular Hgb Conc. 33.6 g/dL (32.0-36.0); Mean Corpuscular Volume 90.6 fL (80.0-100.0); Monocytes # (auto) 0.7 10 ^3/uL (0-1.3); Monocytes % (auto) 6.8 % (0.0-12.0); Neutrophils # (auto) 6.7 10 ^3/uL (1.6-8.6); Neutrophils % (auto) 66.4 % (37.0-80.0); Red Blood Cells 5.21 10^6/uL (4.5-5.90); Red Cell Distribution Width 14.8 % (11.8-14.3); White Blood Cell 10.1 10^3/uL (4.4-10.8)
[2022-09-03 10:23] LABS: BUN/Creatinine Ratio 13.4 (10.0-20.0); Calcium 10.4 mg/dL (8.5-10.1); Potassium 3.7 mmol/L (3.5-5.1)
[2022-09-03] MEDS: CHOLECALCIFEROL (VITD3) 2,000 UNIT CAP/TAB PO SCH (10:24)
[2022-09-03] MEDS ORDERED: CEPH250C PO ×4 (11:04→18:25)
[2022-09-03 16:00] VITALS: BP 136/87
[2022-09-04] MEDS ORDERED: CIPR500T4 PO (17:25)
== END 2022-09-03 18:29 | disposition home or self-care (01) | DRG 100 ==
LOC: ER 10:25 → EDBD 10:25 → TELE 14:27
PROVIDERS: ADMIT Nurse Practitioner Family; ATTEND Internal Medicine
DX: G40.401 Other generalized epilepsy and epileptic syndromes, not intractable, with status epilepticus (principal); G93.41 Metabolic encephalopathy; N17.0 Acute kidney failure with tubular necrosis; I69.354 Hemiplegia and hemiparesis following cerebral infarction affecting left non-dominant side; N30.00 Acute cystitis without hematuria; E83.52 Hypercalcemia; I10 Essential (primary) hypertension; I95.9 Hypotension, unspecified; Z66 Do not resuscitate; E78.5 Hyperlipidemia, unspecified; F41.9 Anxiety disorder, unspecified; R00.0 Tachycardia, unspecified; N40.0 Benign prostatic hyperplasia without lower urinary tract symptoms; F01.50 Vascular dementia, unspecified severity, without behavioral disturbance, psychotic disturbance, mood disturbance, and anxiety; G30.9 Alzheimer's disease, unspecified; Z79.82 Long term (current) use of aspirin; Z79.899 Other long term (current) drug therapy; Z82.49 Family history of ischemic heart disease and other diseases of the circulatory system; Z87.891 Personal history of nicotine dependence; Z88.6 Allergy status to analgesic agent; Z88.1 Allergy status to other antibiotic agents; Z88.5 Allergy status to narcotic agent; Z88.8 Allergy status to other drugs, medicaments and biological substances
CPT/HCPCS: 36415; 70450; 71046; 80048; 80053; 80307; 80320; 81001; 82570; 83036; 83735; 84300; 84443; 84484; 85025; 85610; 85730; 87040; 87077; 87086; 87088; 87186; 93005; 96360; G0378; J0696; J7060

== ENCOUNTER 2023-06-26 13:03 | Emergency (ER) | payer OTHER ==
[~2023-06-26] VITALS: Ht 182.9 cm; Wt 86.0 kg
[~2023-06-26 13:03] MED LIST changes: -ACET-6 PO; -ACET500T58 PO; -AMLO1TAB23 PO; +APIX5TAB PO; -ASPI81CH43 PO; +CARB25TA79 PO; +CEPH250C PO; -CHOL20007 PO; -CIPR500T4 PO; -DOCU100T15 PO; -DONE1TAB88 PO; +HYDR-2792 PO; -LACT10SO70 PO; -LORA2CON PO; +MELA3TAB27 PO; +MET25T PO; +METH-1181 PO; -ONDA-144 PO; -PSYL100P8 PO; +SODI1ENE4 PR
[2023-06-26 14:56] LABS: Basophils # (auto) 0.1 10 ^3/uL (0-0.2); Basophils % (auto) 0.9 % (0.0-2.0); Eosinophils # (auto) 0.5 10 ^3/uL (0-0.8); Hematocrit 42.6 % (41.0-53.0); Hemoglobin 14.3 g/dL (13.5-17.5); Lymphocytes # (auto) 3.2 10 ^3/uL (0.4-5.4); Lymphocytes % (auto) 49.3 % (10.0-50.0); Mean Corpuscular Hemoglobin 30.1 pg (28.0-32.0); Mean Corpuscular Hgb Conc. 33.5 g/dL (32.0-36.0); Mean Corpuscular Volume 89.7 fL (80.0-100.0); Monocytes # (auto) 0.5 10 ^3/uL (0-1.3); Monocytes % (auto) 7.2 % (0.0-12.0); Neutrophils # (auto) 2.3 10 ^3/uL (1.6-8.6); Neutrophils % (auto) 35.6 % (37.0-80.0); Nucleated Red Blood Cells % 0.2 %; Red Blood Cells 4.75 10^6/uL (4.5-5.90); Red Cell Distribution Width 14.4 % (11.8-14.3); White Blood Cell 6.5 10^3/uL (4.4-10.8)
[2023-06-27 04:02] VITALS: PULSE 78; RESP 16; O2SAT 97
[2023-06-27 04:05] VITALS: BP 156/92; PULSE 78; RESP 16; TEMP 97.2; O2SAT 97
== END 2023-06-27 04:17 | disposition home or self-care (01) ==
LOC: EDBD 13:03 → ER 13:03
DX: T82.837A Hemorrhage due to cardiac prosthetic devices, implants and grafts, initial encounter (principal); F03.90 Unspecified dementia, unspecified severity, without behavioral disturbance, psychotic disturbance, mood disturbance, and anxiety; K21.9 Gastro-esophageal reflux disease without esophagitis; E78.5 Hyperlipidemia, unspecified; I69.354 Hemiplegia and hemiparesis following cerebral infarction affecting left non-dominant side; I10 Essential (primary) hypertension; R56.9 Unspecified convulsions; Z95.0 Presence of cardiac pacemaker; Z90.89 Acquired absence of other organs; Z88.1 Allergy status to other antibiotic agents; Z88.5 Allergy status to narcotic agent
CPT/HCPCS: 36415; 71045; 82962; 85025; 93005

== ENCOUNTER 2023-06-27 14:21 | Inpatient (IN) | payer MEDICARE, OTHER ==
[~2023-06-27] VITALS: Ht 185.4 cm; Wt 89.3 kg
[2023-06-27 15:00] VITALS: PULSE 66; RESP 20; O2SAT 98
[2023-06-27 15:09] LABS: Basophils # (auto) 0.1 10 ^3/uL (0-0.2); Eosinophils # (auto) 0.5 10 ^3/uL (0-0.8); Eosinophils % (auto) 8.5 % (0.0-7.0); Hematocrit 44.9 % (41.0-53.0); Lymphocytes # (auto) 2.7 10 ^3/uL (0.4-5.4); Mean Corpuscular Hemoglobin 30.4 pg (28.0-32.0); Mean Corpuscular Hgb Conc. 33.4 g/dL (32.0-36.0); Monocytes # (auto) 0.4 10 ^3/uL (0-1.3); Monocytes % (auto) 7.6 % (0.0-12.0); Neutrophils # (auto) 1.9 10 ^3/uL (1.6-8.6); Neutrophils % (auto) 33.9 % (37.0-80.0); Nucleated Red Blood Cells % 0.5 %; Red Blood Cells 4.94 10^6/uL (4.5-5.90); Red Cell Distribution Width 14.5 % (11.8-14.3); White Blood Cell 5.6 10^3/uL (4.4-10.8)
[2023-06-27 15:34] LABS: Alanine Aminotransferase 36 U/L (7-40); Albumin 4.2 g/dL (3.2-4.8); Alkaline Phosphatase 109 U/L (46-116); Anion Gap 6 (5-15); Aspartate Aminotransferase 30 U/L (13-40); BUN/Creatinine Ratio 14.5 (10.0-20.0); Bilirubin, Total 0.6 mg/dL (0.2-1.0); Blood Urea Nitrogen 17 mg/dL (9-23); Calcium 12.9 mg/dL (8.7-10.4); Carbon Dioxide 22 mmol/L (20-30); Chloride 103 mmol/L (98-107); Glucose 103 mg/dL (74-106); Lipase 42 U/L (12-53); Potassium 4.3 mmol/L (3.5-5.1); Sodium 131 mmol/L (136-145); Total Protein 7.5 g/dL (5.7-8.2)
[2023-06-27] MEDS ORDERED: HYDROcodone-ACET 5/325MG TAB PO PRN (17:00)
[2023-06-27] MEDS ORDERED: ACETAMINOPHEN 325 MG TAB PO PRN (17:00)
[2023-06-27] MEDS ORDERED: NITROGLYCERIN 0.4 MG SL TAB SL PRN (17:00)
[2023-06-27] MEDS: SODIUM CHLORIDE 0.9% 500 ML IV ONE (17:00)
[2023-06-27] MEDS ORDERED: MORPHINE SULFATE INJ 2 MG/ml SYRG IV PRN (17:00)
[2023-06-27] MEDS: TAMSULOSIN HYDROCHLORIDE 0.4 MG CAP PO SCH (18:24)
[2023-06-27] MEDS: SODIUM CHLORIDE 0.9% 1,000 ML IV ONE (18:24)
[2023-06-27] MEDS: VANCOMYCIN 1GM/200ML 200 ML IV ONE (18:24)
[2023-06-27 19:18] LABS: INR 1.01 (0.9-1.15); Prothrombin Time 10.6 sec (9.3-11.8)
[2023-06-27 19:48] VITALS: PULSE 78; RESP 17; O2SAT 72
[2023-06-27 22:00] VITALS: BP 134/63; PULSE 78; RESP 20; TEMP 98.4; O2SAT 99
[2023-06-27] MEDS ORDERED: METHOCARBAMOL 500 MG TAB PO PRN (22:00)
[2023-06-27] MEDS: CARBIDOPA LEVODOPA PO SCH (22:00)
[2023-06-27 22:01] VITALS: PULSE 78; O2SAT 99
[2023-06-27] MEDS: ceFAZolin 1GM/50ML 50 ML IV SCH (22:50)
[2023-06-27] MEDS: FAMOTIDINE 20 MG TAB PO SCH (22:53)
[2023-06-27] MEDS: hydrALAZINE HCL 10 MG TAB PO SCH (22:53)
[2023-06-27] MEDS: levETIRAcetam 500 MG TAB PO SCH (22:53)
[2023-06-27] MEDS: METOPROLOL TARTRATE 25 MG TAB PO SCH (22:54)
[2023-06-27] MEDS: SODIUM CHLORIDE 0.9% 1,000 ML IV SCH (23:02)
[2023-06-28] VITALS (21 sets, daily range): BP systolic 116–164; BP diastolic 52–93; PULSE 18–96; RESP 11–21; TEMP 97.8–98.7; O2SAT 89–100
[2023-06-28] MEDS: levETIRAcetam 500 MG TAB PO ONE (10:18)
[2023-06-28 11:10] LABS: Alanine Aminotransferase 22 U/L (7-40); Alkaline Phosphatase 53 U/L (46-116); Anion Gap 10 (5-15); BUN/Creatinine Ratio 16.1 (10.0-20.0); Blood Urea Nitrogen 9 mg/dL (9-23); Calcium 6.7 mg/dL (8.5-10.1); Carbon Dioxide 13 mmol/L (20-30); Glucose 62 mg/dL (74-106); Sodium 144 mmol/L (136-145)
[2023-06-28 11:11] LABS: Aspartate Aminotransferase 14 U/L (13-40)
[2023-06-28 11:12] LABS: Bilirubin, Total 0.4 mg/dL (0.2-1.0); Total Protein 3.6 g/dL (5.7-8.2)
[2023-06-28 11:21] LABS: Chloride 121 mmol/L (98-107); Potassium 2.2 mmol/L (3.5-5.1)
[2023-06-28 11:49] LABS: Basophils # (auto) 0.1 10 ^3/uL (0-0.2); Basophils % (auto) 1.1 % (0.0-2.0); Eosinophils # (auto) 0.3 10 ^3/uL (0-0.8); Eosinophils % (auto) 6.5 % (0.0-7.0); Hematocrit 29.6 % (41.0-53.0); Hemoglobin 9.6 g/dL (13.5-17.5); Lymphocytes # (auto) 1.9 10 ^3/uL (0.4-5.4); Lymphocytes % (auto) 39.4 % (10.0-50.0); Mean Corpuscular Hemoglobin 30.6 pg (28.0-32.0); Mean Corpuscular Hgb Conc. 32.4 g/dL (32.0-36.0); Mean Corpuscular Volume 94.3 fL (80.0-100.0); Monocytes # (auto) 0.5 10 ^3/uL (0-1.3); Monocytes % (auto) 9.6 % (0.0-12.0); Neutrophils # (auto) 2.1 10 ^3/uL (1.6-8.6); Neutrophils % (auto) 43.4 % (37.0-80.0); Nucleated Red Blood Cells % 0.4 %; Red Blood Cells 3.14 10^6/uL (4.5-5.90); Red Cell Distribution Width 14.5 % (11.8-14.3); White Blood Cell 4.9 10^3/uL (4.4-10.8)
[2023-06-28] MEDS: POTASSIUM CHL 20MEQ/100ML 100 ML IV ONE (12:00)
[2023-06-28] MEDS ORDERED: POTASSIUM CHL 20 Meq TABLET PO ONE (12:00)
[2023-06-28] MEDS: POTASSIUM EFFERVESENT TAB 25 MEQ PO ONE (12:44)
[2023-06-28] MEDS: fentaNYL CITRATE 100 MCG/2 ML VL ONE (17:24)
[2023-06-28] MEDS: VANCOMYCIN HCL 1000 MG VL ONE ×2 (17:24→17:39)
[2023-06-28] MEDS: LIDOCAINE 2%HCL (LOCAL ANESTH.) INJ 20ML MDV ONE ×2 (17:25→18:23)
[2023-06-28] MEDS: MIDAZOLAM HCL 2MG/2ML 2ml VIAL (1mg/ml) ONE (17:25)
[2023-06-28] MEDS: VANCOMYCIN 1GM/200ML 200 ML IV ONE (17:25)
[2023-06-28] MEDS: ceFAZolin 1GM/50ML 50 ML IV SCH (22:08)
[2023-06-28] MEDS: levETIRAcetam 500 MG TAB PO SCH (22:13)
[2023-06-29] VITALS (26 sets, daily range): BP systolic 97–157; BP diastolic 31–92; PULSE 28–70; RESP 10–23; TEMP 97.2–98.2; O2SAT 84–100
[2023-06-29 04:12] LABS: Chloride 126 mmol/L (98-107); Sodium 146 mmol/L (136-145)
[2023-06-29 04:13] LABS: Anion Gap 6 (5-15); Carbon Dioxide 14 mmol/L (20-30)
[2023-06-29 04:18] LABS: Blood Urea Nitrogen 10 mg/dL (9-23); Glucose 76 mg/dL (74-106)
[2023-06-29 04:33] LABS: Potassium 2.4 mmol/L (3.5-5.1)
[2023-06-29 04:34] LABS: Calcium 5.1 mg/dL (8.7-10.4); Magnesium 0.6 mg/dL (1.6-2.6)
[2023-06-29] MEDS: VANCOMYCIN 1GM/200ML 200 ML IV ONE (05:04)
[2023-06-29] MEDS: POTASSIUM CHL 20MEQ/100ML 100 ML IV SCH (06:30)
[2023-06-29] MEDS: MAGNESIUM SULFATE 1GM/100ML 100 ML IV SCH (06:38)
[2023-06-29] MEDS: CALCIUM GLUC 1,000mg/50ml-NS 50 ML IV ONE (07:41)
[2023-06-29 11:52] LABS: Basophils # (auto) 0.1 10 ^3/uL (0-0.2); Basophils % (auto) 0.8 % (0.0-2.0); Eosinophils # (auto) 0.4 10 ^3/uL (0-0.8); Eosinophils % (auto) 5.5 % (0.0-7.0); Hematocrit 43.1 % (41.0-53.0); Hemoglobin 14.6 g/dL (13.5-17.5); Lymphocytes # (auto) 2.3 10 ^3/uL (0.4-5.4); Lymphocytes % (auto) 33.9 % (10.0-50.0); Mean Corpuscular Hemoglobin 31.1 pg (28.0-32.0); Mean Corpuscular Hgb Conc. 33.9 g/dL (32.0-36.0); Mean Corpuscular Volume 91.7 fL (80.0-100.0); Monocytes # (auto) 0.4 10 ^3/uL (0-1.3); Monocytes % (auto) 6.3 % (0.0-12.0); Neutrophils # (auto) 3.7 10 ^3/uL (1.6-8.6); Neutrophils % (auto) 53.5 % (37.0-80.0); Nucleated Red Blood Cells % 0.1 %; Red Cell Distribution Width 14.5 % (11.8-14.3); White Blood Cell 6.9 10^3/uL (4.4-10.8)
[2023-06-29 11:58] LABS: Potassium 4.9 mmol/L (3.5-5.1)
[2023-06-29 17:02] LABS: Potassium 4.7 mmol/L (3.5-5.1)
[2023-06-29 17:04] LABS: Calcium 12.2 mg/dL (8.7-10.4)
[2023-06-29 17:08] LABS: Magnesium 1.9 mg/dL (1.6-2.6)
[2023-06-29] MEDS: CARBIDOPA W LEVODOPA 25/100mg TABLET PO ONE (17:36)
[2023-06-29] MEDS: CARBIDOPA W LEVODOPA 25/100mg TABLET PO SCH (21:43)
[2023-06-29] MEDS: MELATONIN 5 MG TAB PO SCH (21:43)
[2023-06-30] VITALS (33 sets, daily range): BP systolic 84–175; BP diastolic 33–102; PULSE 60–83; RESP 10–23; TEMP 97.8–98.1; O2SAT 98–100
[2023-06-30 03:41] LABS: Basophils # (auto) 0.1 10 ^3/uL (0-0.2); Basophils % (auto) 1.3 % (0.0-2.0); Eosinophils # (auto) 0.5 10 ^3/uL (0-0.8); Eosinophils % (auto) 7.3 % (0.0-7.0); Lymphocytes # (auto) 2.5 10 ^3/uL (0.4-5.4); Lymphocytes % (auto) 36.9 % (10.0-50.0); Mean Corpuscular Hemoglobin 30.2 pg (28.0-32.0); Mean Corpuscular Hgb Conc. 33.4 g/dL (32.0-36.0); Mean Corpuscular Volume 90.5 fL (80.0-100.0); Monocytes # (auto) 0.5 10 ^3/uL (0-1.3); Monocytes % (auto) 7.5 % (0.0-12.0); Neutrophils # (auto) 3.2 10 ^3/uL (1.6-8.6); Nucleated Red Blood Cells % 0.1 %; Red Cell Distribution Width 14.7 % (11.8-14.3); White Blood Cell 6.9 10^3/uL (4.4-10.8)
[2023-06-30 03:50] LABS: Anion Gap 5 (5-15); Carbon Dioxide 24 mmol/L (20-30); Potassium 4.3 mmol/L (3.5-5.1)
[2023-06-30 03:54] LABS: Chloride 107 mmol/L (98-107); Sodium 136 mmol/L (136-145)
[2023-06-30 03:56] LABS: BUN/Creatinine Ratio 16.2 (10.0-20.0); Blood Urea Nitrogen 21 mg/dL (9-23); Glucose 104 mg/dL (74-106); Magnesium 1.7 mg/dL (1.6-2.6)
[2023-06-30] MEDS: FLEET ENEMA(ADULT) 135 ML PR ONE (13:45)
[2023-06-30] MEDS: BISACODYL 10 MG RECT SUPP PR PRN (14:40)
[2023-06-30] MEDS: DOCUSATE SOD 100 MG CAP PO ONE (14:40)
[2023-06-30] MEDS: DOCUSATE SOD 100 MG CAP PO SCH (22:05)
[2023-07-01] VITALS (29 sets, daily range): BP systolic 92–185; BP diastolic 50–118; PULSE 60–100; RESP 10–23; TEMP 98–98.7; O2SAT 98–100
[2023-07-01] MEDS ORDERED: cloNIDine HCL 0.1 MG TAB PO PRN (08:30)
[2023-07-01] MEDS ORDERED: LOSARTAN POTASSIUM 50 MG TAB PO SCH (10:00)
[2023-07-02] VITALS (24 sets, daily range): BP systolic 95–196; BP diastolic 38–115; PULSE 60–91; RESP 10–30; TEMP 98.6–99.1; O2SAT 98–100
[2023-07-03] VITALS (27 sets, daily range): BP systolic 78–201; BP diastolic 38–102; PULSE 60–99; RESP 11–29; TEMP 98.1–98.9; O2SAT 93–100
[2023-07-03] MEDS: hydrALAZINE HCL 20 MG/ML VL IV PRN (02:23)
[2023-07-03 04:12] LABS: Basophils # (auto) 0.1 10 ^3/uL (0-0.2); Basophils % (auto) 0.7 % (0.0-2.0); Eosinophils # (auto) 0.4 10 ^3/uL (0-0.8); Eosinophils % (auto) 5.5 % (0.0-7.0); Hematocrit 40.4 % (41.0-53.0); Hemoglobin 13.6 g/dL (13.5-17.5); Lymphocytes # (auto) 2.3 10 ^3/uL (0.4-5.4); Lymphocytes % (auto) 31.3 % (10.0-50.0); Mean Corpuscular Hemoglobin 30.4 pg (28.0-32.0); Mean Corpuscular Hgb Conc. 33.7 g/dL (32.0-36.0); Mean Corpuscular Volume 90.2 fL (80.0-100.0); Monocytes # (auto) 0.5 10 ^3/uL (0-1.3); Monocytes % (auto) 6.8 % (0.0-12.0); Neutrophils # (auto) 4.1 10 ^3/uL (1.6-8.6); Neutrophils % (auto) 55.7 % (37.0-80.0); Red Blood Cells 4.48 10^6/uL (4.5-5.90); White Blood Cell 7.4 10^3/uL (4.4-10.8)
[2023-07-03 04:34] LABS: Chloride 108 mmol/L (98-107); Potassium 4.2 mmol/L (3.5-5.1); Sodium 136 mmol/L (136-145)
[2023-07-03 04:35] LABS: Anion Gap 6 (5-15); Calcium 12.6 mg/dL (8.7-10.4); Carbon Dioxide 22 mmol/L (20-30)
[2023-07-03 04:40] LABS: BUN/Creatinine Ratio 10.9 (10.0-20.0); Blood Urea Nitrogen 14 mg/dL (9-23); Glucose 97 mg/dL (74-106)
[2023-07-03 04:41] LABS: Magnesium 1.6 mg/dL (1.6-2.6)
[2023-07-03] MEDS: FLEET ENEMA(ADULT) 135 ML PR ONE ×3 (12:23→15:00)
[2023-07-03] MEDS: MAGNESIUM SULFATE 1GM/100ML 100 ML IV SCH (13:12)
[2023-07-03] MEDS: LIDOCAINE 2%HCL (LOCAL ANESTH.) INJ 20ML MDV ONE (16:26)
[2023-07-03] MEDS: MIDAZOLAM HCL 2MG/2ML 2ml VIAL (1mg/ml) ONE (16:44)
[2023-07-03] MEDS: VANCOMYCIN 1GM/200ML 200 ML IV ONE (16:44)
[2023-07-03] MEDS: fentaNYL CITRATE 100 MCG/2 ML VL ONE (16:44)
[2023-07-03] MEDS: VANCOMYCIN HCL 1000 MG VL ONE (16:45)
[2023-07-03] MEDS: hydrALAZINE HCL 20 MG/ML VL ONE (18:06)
[2023-07-04] VITALS (8 sets, daily range): BP systolic 97–129; BP diastolic 56–79; PULSE 61–88; RESP 14–61; TEMP 97.5–98.8; O2SAT 92–100
[2023-07-04 11:09] LABS: Anion Gap 9 (5-15); Calcium 12.1 mg/dL (8.7-10.4); Carbon Dioxide 20 mmol/L (20-30); Chloride 110 mmol/L (98-107); Potassium 4.1 mmol/L (3.5-5.1); Sodium 139 mmol/L (136-145)
[2023-07-04 11:14] LABS: Glucose 97 mg/dL (74-106)
[2023-07-04 11:15] LABS: BUN/Creatinine Ratio 9.1 (10.0-20.0); Blood Urea Nitrogen 10 mg/dL (9-23); Magnesium 1.6 mg/dL (1.6-2.6)
[2023-07-04] MEDS: levoFLOXacin 500MG 100 ML IV SCH (14:09)
[2023-07-04] MEDS: Juven Orange Powder PACKET 27.5gm PO SCH (21:48)
[2023-07-05] VITALS (8 sets, daily range): BP systolic 94–139; BP diastolic 43–70; PULSE 59–82; RESP 14–20; TEMP 97.9–99.4; O2SAT 93–98
[2023-07-06] VITALS (7 sets, daily range): BP systolic 121–154; BP diastolic 59–80; PULSE 60–71; RESP 16–20; TEMP 97.8–99.4; O2SAT 94–100
[2023-07-06] MEDS: SENNA 8.6 MG TAB PO PRN (16:49)
[2023-07-06] MEDS: FLEET ENEMA(ADULT) 135 ML PR ONE (18:29)
[2023-07-07] VITALS (8 sets, daily range): BP systolic 98–140; BP diastolic 52–75; PULSE 60–86; RESP 18–20; TEMP 98–98.8; O2SAT 80–100
[2023-07-07 07:26] LABS: Chloride 111 mmol/L (98-107); Sodium 138 mmol/L (136-145)
[2023-07-07 07:27] LABS: Anion Gap 6 (5-15); Calcium 11.8 mg/dL (8.7-10.4); Carbon Dioxide 21 mmol/L (20-30)
[2023-07-07 07:32] LABS: Glucose 98 mg/dL (74-106)
[2023-07-07 07:33] LABS: BUN/Creatinine Ratio 11.1 (10.0-20.0); Blood Urea Nitrogen 13 mg/dL (9-23)
[2023-07-07 07:34] LABS: Basophils # (auto) 0.1 10 ^3/uL (0-0.2); Basophils % (auto) 0.9 % (0.0-2.0); Eosinophils # (auto) 0.4 10 ^3/uL (0-0.8); Eosinophils % (auto) 6.2 % (0.0-7.0); Hematocrit 36.8 % (41.0-53.0); Hemoglobin 11.9 g/dL (13.5-17.5); Lymphocytes # (auto) 2.2 10 ^3/uL (0.4-5.4); Lymphocytes % (auto) 36.1 % (10.0-50.0); Mean Corpuscular Hemoglobin 29.9 pg (28.0-32.0); Mean Corpuscular Hgb Conc. 32.3 g/dL (32.0-36.0); Mean Corpuscular Volume 92.7 fL (80.0-100.0); Monocytes # (auto) 0.5 10 ^3/uL (0-1.3); Monocytes % (auto) 7.7 % (0.0-12.0); Neutrophils # (auto) 2.9 10 ^3/uL (1.6-8.6); Neutrophils % (auto) 49.1 % (37.0-80.0); Nucleated Red Blood Cells % 0.1 %; Red Blood Cells 3.97 10^6/uL (4.5-5.90); Red Cell Distribution Width 15.2 % (11.8-14.3)
[2023-07-07] MEDS: LACTULOSE 20Gm/30ML SOLN PO ONE (09:35)
[2023-07-07] MEDS: FLEET ENEMA(ADULT) 135 ML PR ONE (12:42)
[2023-07-08] VITALS (8 sets, daily range): BP systolic 121–140; BP diastolic 65–76; PULSE 16–74; RESP 16–18; TEMP 97.8–98.3; O2SAT 97–100
[2023-07-08] MEDS: levoFLOXacin 500 MG TAB PO ONE (14:07)
[2023-07-09] VITALS (8 sets, daily range): BP systolic 108–151; BP diastolic 55–66; PULSE 60–71; RESP 16–18; TEMP 98.1–98.9; O2SAT 97–100
[2023-07-09] MEDS: levoFLOXacin 500 MG TAB PO SCH (09:22)
[2023-07-10] VITALS (8 sets, daily range): BP systolic 99–154; BP diastolic 51–121; PULSE 60–74; RESP 16–20; TEMP 97.9–98.8; O2SAT 96–100
[2023-07-11] VITALS (7 sets, daily range): BP systolic 111–155; BP diastolic 59–88; PULSE 58–97; RESP 17–20; TEMP 97.5–98.6; O2SAT 96–100
[2023-07-12] VITALS (8 sets, daily range): BP systolic 98–144; BP diastolic 47–76; PULSE 54–62; RESP 17–20; TEMP 97.6–98.5; O2SAT 92–100
[2023-07-12] MEDS ORDERED: SODIUM CHLORIDE 0.9% 500 ML IV ONE (11:30)
[2023-07-12] MEDS: SODIUM CHLORIDE 0.9% 500 ML IV ONE (11:45)
[2023-07-12] MEDS: SODIUM CHLORIDE 0.9% 1,000 ML IV SCH (12:00)
[2023-07-12 12:03] LABS: Alanine Aminotransferase 15 U/L (7-40); Albumin 3.5 g/dL (3.2-4.8); Alkaline Phosphatase 75 U/L (46-116); Anion Gap 7 (5-15); Aspartate Aminotransferase 26 U/L (13-40); BUN/Creatinine Ratio 11.7 (10.0-20.0); Bilirubin, Total 0.6 mg/dL (0.2-1.0); Blood Urea Nitrogen 21 mg/dL (9-23); Calcium 12.6 mg/dL (8.7-10.4); Carbon Dioxide 19 mmol/L (20-30); Chloride 109 mmol/L (98-107); Glucose 124 mg/dL (74-106); Magnesium 1.8 mg/dL (1.6-2.6); Potassium 4.3 mmol/L (3.5-5.1); Sodium 135 mmol/L (136-145); Total Protein 6.4 g/dL (5.7-8.2)
[2023-07-12 13:57] LABS: Basophils # (auto) 0 10 ^3/uL (0-0.2); Eosinophils # (auto) 0.1 10 ^3/uL (0-0.8); Monocytes # (auto) 0.4 10 ^3/uL (0-1.3); Neutrophils # (auto) 3.2 10 ^3/uL (1.6-8.6); White Blood Cell 4.6 10^3/uL (4.4-10.8)
[2023-07-12 14:01] LABS: Basophils % (auto) 0.5 % (0.0-2.0); Eosinophils % (auto) 2.3 % (0.0-7.0); Hematocrit 22.8 % (41.0-53.0); Hemoglobin 7.6 g/dL (13.5-17.5); Lymphocytes # (auto) 0.8 10 ^3/uL (0.4-5.4); Lymphocytes % (auto) 18.3 % (10.0-50.0); Mean Corpuscular Hgb Conc. 33.1 g/dL (32.0-36.0); Mean Corpuscular Volume 93.7 fL (80.0-100.0); Monocytes % (auto) 8.6 % (0.0-12.0); Neutrophils % (auto) 70.3 % (37.0-80.0); Red Blood Cells 2.44 10^6/uL (4.5-5.90); Red Cell Distribution Width 15.3 % (11.8-14.3)
[2023-07-12] MEDS: LACTULOSE 20Gm/30ML SOLN PO ONE (17:11)
[2023-07-12] MEDS ORDERED: traMADol HCL 50 MG TAB PO PRN (17:30)
[2023-07-12 23:22] LABS: Hemoglobin 12.7 g/dL (13.5-17.5)
[2023-07-12 23:24] LABS: Hematocrit 39.3 % (41.0-53.0)
[2023-07-12] MEDS ORDERED: LORazepam 2MG/ML-1ML VIAL IV PRN (23:45)
[2023-07-13 00:22] LABS: INR 1.04 (0.9-1.15); Partial Thromboplastin Time < 20.0 SEC (24.5-34.5)
[2023-07-13 00:39] VITALS: BP 111/51; PULSE 60; RESP 18; TEMP 97.6; O2SAT 98
[2023-07-13 00:40] LABS: Triglycerides 93 mg/dL (< 150)
[2023-07-13 00:41] LABS: LDL Cholesterol 104 mg/dL (< 100)
[2023-07-13 00:42] LABS: Cholesterol 161 mg/dL (< 200); HDL Cholesterol 34 mg/dL (40-59)
[2023-07-13 04:26] VITALS: BP 117/60; PULSE 60; RESP 18; TEMP 97.7; O2SAT 100
[2023-07-13 08:00] VITALS: PULSE 60
[2023-07-13 09:00] VITALS: BP 137/70; PULSE 60; RESP 16; TEMP 98.2; O2SAT 97
[2023-07-13 09:48] LABS: Basophils # (auto) 0.1 10 ^3/uL (0-0.2); Basophils % (auto) 0.7 % (0.0-2.0); Eosinophils # (auto) 0.4 10 ^3/uL (0-0.8); Eosinophils % (auto) 5.3 % (0.0-7.0); Hematocrit 38.6 % (41.0-53.0); Hemoglobin 12.6 g/dL (13.5-17.5); Lymphocytes # (auto) 2.7 10 ^3/uL (0.4-5.4); Lymphocytes % (auto) 39.4 % (10.0-50.0); Mean Corpuscular Hemoglobin 30.8 pg (28.0-32.0); Mean Corpuscular Hgb Conc. 32.7 g/dL (32.0-36.0); Mean Corpuscular Volume 94.1 fL (80.0-100.0); Monocytes # (auto) 0.5 10 ^3/uL (0-1.3); Monocytes % (auto) 7.4 % (0.0-12.0); Neutrophils # (auto) 3.2 10 ^3/uL (1.6-8.6); Neutrophils % (auto) 47.2 % (37.0-80.0); Nucleated Red Blood Cells % 0.1 %; Red Cell Distribution Width 15.7 % (11.8-14.3); White Blood Cell 6.9 10^3/uL (4.4-10.8)
[2023-07-13 10:03] LABS: Alanine Aminotransferase 18 U/L (7-40); Albumin 3.4 g/dL (3.2-4.8); Alkaline Phosphatase 77 U/L (46-116); Anion Gap 7 (5-15); Aspartate Aminotransferase 22 U/L (13-40); BUN/Creatinine Ratio 14.5 (10.0-20.0); Bilirubin, Total 0.5 mg/dL (0.2-1.0); Blood Urea Nitrogen 18 mg/dL (9-23); Calcium 12.3 mg/dL (8.5-10.1); Carbon Dioxide 21 mmol/L (20-30); Chloride 111 mmol/L (98-107); Glucose 94 mg/dL (74-106); Potassium 4.2 mmol/L (3.5-5.1); Sodium 139 mmol/L (136-145); Total Protein 6.1 g/dL (5.7-8.2)
[2023-07-13] MEDS: FLEET ENEMA(ADULT) 135 ML PR ONE (11:52)
[2023-07-13 13:37] VITALS: BP 147/71; PULSE 87; RESP 16; TEMP 98.1; O2SAT 100
[2023-07-13] MEDS ORDERED: LEVE100012 PO (14:54)
[2023-07-13 17:57] LABS: Magnesium 1.7 mg/dL (1.6-2.6)
[2023-07-15 13:37] LABS: Free T4 (Free Thyroxine) 1.23 ng/dL (0.89-1.76)
[2023-07-15 13:42] LABS: Folate (Folic Acid) 11.08 ng/mL (>5.38)
== END 2023-07-13 17:50 | DRG 242 ==
LOC: ER 14:21 → EDBD 14:21 → TELE-CENTR 16:56 → TELE 16:56 → TELE-CENTR 21:20 → ICU WEST 06-28 20:35 → TELE-WESTW 07-03 20:20
PROVIDERS: ADMIT Internal Medicine Geriatric Medicine; ATTEND Internal Medicine Geriatric Medicine
PROC: 0JPT3PZ Removal of Cardiac Rhythm Related Device from Trunk Subcutaneous Tissue and Fascia, Percutaneous Approach (ICD-10-PCS; principal; 2023-06-28)
PROC: 5A1223Z Performance of Cardiac Pacing, Continuous (ICD-10-PCS; 2023-07-03)
PROC: 0JH606Z Insertion of Pacemaker, Dual Chamber into Chest Subcutaneous Tissue and Fascia, Open Approach (ICD-10-PCS; 2023-07-03)
PROC: 02H63JZ Insertion of Pacemaker Lead into Right Atrium, Percutaneous Approach (ICD-10-PCS; 2023-07-03)
PROC: 02HK3JZ Insertion of Pacemaker Lead into Right Ventricle, Percutaneous Approach (ICD-10-PCS; 2023-07-03)
PROC: 02PA0MZ Removal of Cardiac Lead from Heart, Open Approach (ICD-10-PCS; 2023-07-03)
DX: T82.837A Hemorrhage due to cardiac prosthetic devices, implants and grafts, initial encounter (principal); G93.41 Metabolic encephalopathy; J96.01 Acute respiratory failure with hypoxia; I69.354 Hemiplegia and hemiparesis following cerebral infarction affecting left non-dominant side; N39.0 Urinary tract infection, site not specified; N17.9 Acute kidney failure, unspecified; I49.5 Sick sinus syndrome; E83.52 Hypercalcemia; I10 Essential (primary) hypertension; K21.9 Gastro-esophageal reflux disease without esophagitis; Z66 Do not resuscitate; Y83.1 Surgical operation with implant of artificial internal device as the cause of abnormal reaction of the patient, or of later complication, without mention of misadventure at the time of the procedure; E78.5 Hyperlipidemia, unspecified; E87.6 Hypokalemia; G40.409 Other generalized epilepsy and epileptic syndromes, not intractable, without status epilepticus; G20.A1 Parkinson's disease without dyskinesia, without mention of fluctuations; F02.80 Dementia in other diseases classified elsewhere, unspecified severity, without behavioral disturbance, psychotic disturbance, mood disturbance, and anxiety; B96.5 Pseudomonas (aeruginosa) (mallei) (pseudomallei) as the cause of diseases classified elsewhere; K59.00 Constipation, unspecified; F17.200 Nicotine dependence, unspecified, uncomplicated; E86.0 Dehydration; Z88.6 Allergy status to analgesic agent; Z86.718 Personal history of other venous thrombosis and embolism; Z79.01 Long term (current) use of anticoagulants; Z82.5 Family history of asthma and other chronic lower respiratory diseases; Z88.1 Allergy status to other antibiotic agents; Z88.5 Allergy status to narcotic agent; Z88.8 Allergy status to other drugs, medicaments and biological substances; Z79.899 Other long term (current) drug therapy; Y92.89 Other specified places as the place of occurrence of the external cause
CPT/HCPCS: 33208; 33233; 33235; 36415; 70450; 71045; 80048; 80053; 80061; 82310; 82607; 82746; 82962; 83605; 83690; 83735; 84132; 84439; 84443; 84484; 85014; 85018; 85025; 85610; 85730; 86850; 86900; 86901; 87040; 87081; 87086; 87088; 87186; 93005; 93971; 96365; 97110; 97116; 97163; 97530; 99152; C1751; G0378; J1956; J2250; J3480